=== PATIENT | female | born 1980 | race Caucasian/White ===

== ENCOUNTER 2022-12-04 14:44 | Emergency (ER) | payer SELFPAY | END 2022-12-04 19:44 | disposition left against medical advice (07) | PROVIDERS: Emergency Provider Emergency Medicine | DX: B02.9 Zoster without complications (principal) ==

== ENCOUNTER 2022-12-05 11:07 | Emergency (ER) | payer MEDICAID, OTHER, SELFPAY ==
[2022-12-05 11:38] VITALS: BP 117/73; PULSE 106; RESP 17; TEMP 37.2; O2SAT 100; BMI 23.1
--- NOTE | 2022-12-05 11:39 | ED.SKABFB ---
HPI - Skin/Abscess/Foreign Bdy General Chief complaint: General Medical Stated complaint: Shingles Time Seen by Provider: 12/05/22 11:40 Source: patient Mode of arrival: ambulatory History of Present Illness HPI narrative: 42-year-old female with no significant past medical history presenting to ED complaining of suspected shingles rash to left chest since Sunday. Patient states she came to the ED yesterday however LWT'd due to wait time and being too much pain. Reports subjective fever. Denies CP/SOB, open/draining wounds. Admits had chickenpoxs as a child MD complaint: rash Onset (ago): day(s) Related Data Previous Rx's Medication Instructions Recorded gabapentin 100 mg capsule 100 mg PO TID 7 days #21 caps 12/05/22 valacyclovir 1 gram tablet 1,000 mg PO TID 7 days #21 tabs 12/05/22 (Valtrex) Allergies Allergy/AdvReac Type Severity Reaction Status Date / Time No Known Allergies Allergy Verified 12/05/22 11:41 Review of Systems Review of Systems: Constitutional: No Fever, No Chills ENT/Mouth: No Ear Pain, No Nasal Congestion, No sore throat, No Rhinorrhea, No Swallowing Difficulty Cardiovascular: No Chest Pain, No SOB Respiratory: No Cough, No Sputum, No Wheezing Gastrointestinal: No Nausea, No Vomiting, No Diarrhea, No Constipation, No Abdominal pain Genitourinary: No Dysuria, No Urinary Frequency, No Hematuria, No Flank Pain Musculoskeletal: No joint pain, No Myalgias, No Joint Swelling Skin: + Skin Lesions, No rash Neuro: No Weakness, No Numbness, No Paresthesias Yes all other systems are reviewed and are negative Constitutional: Constitutional: Reports as per [facility] Past Medical History Attestation statement: The following information was validated with the patient. Physical Exam Vital Signs: Vital Signs: Last Vital Signs Temp 98.9 F 12/05/22 11:38 Pulse 106 H 12/05/22 11:38 Resp 17 12/05/22 11:38 BP 117/73 12/05/22 11:38 Pulse Ox 100 12/05/22 11:38 BMI result Body Mass Index 23.1 Const: General: cooperative, healthy appearing and no acute distress Orientation/consciousness: patient oriented x3 Limitations: no limitations HEENT: Head: Yes normal to inspection and Yes atraumatic Ears: hearing grossly normal bilaterally General nose exam: Normal external nose present Face and sinus: Yes normal facial exam Eyes: General: appearance normal, both eyes and all related structures EOM: EOMs intact bilaterally Neck: Neck: Yes normal visual inspection and Yes no meningeal signs Resp: Effort & Inspection: normal respiratory effort and no respiratory distress Cardio: Rate: regular rate Heart sounds: S1 normal heart sound present and S2 normal heart sound present Skin: Other: + vesicular rash in dermatomal fashion noted to left chest crossing lower breast, and back, not crossing midline. No active drainage, no underlying erythema/cellulitis Wounds: no wounds Neuro: General: patient oriented x3, tone normal and no meningeal signs Gait exam (Neuro): Normal gait present Extrem: General: Yes normal to inspection Medical Decision Making Medical Decision Making MDM Narrative: 42-year-old female with no significant past medical history presenting to ED complaining of suspected shingles rash to left chest since Sunday. On exam mildly tachycardic likely from pain, appears uncomfortable, vesicular dermatomal rash noted to left chest, not crossing midline, consistent with shingles. No ocular/ear or palm/sole involvement. No evidence of overlying cellulitis Discussed with patient with customs and border protection officer importance of avoiding children/ women and elders. Plan: P.o. acyclovir/gabapentin Please refer to course for remaining clinical decision making, interpretation of labs/imaging results, and discussions with consultants and/or family members. Differential Diagnosis Differential Diagnoses: The differential diagnosis associated with the presentation includes As above Admission/Observation Consideration of admission/observation: Escalation of care including admission/observation considered Lab Data [facility] Lab Attestation statement: I reviewed the patient's lab results. Radiology Impression Discussion of test interpretation with radiology: I have reviewed the radiologist's reading. External Record Review External record reviewed: Inpatient record, Office record, Outpatient record, Prior outpatient labs, Prior outpatient radiology, Primary care record and Outside ED record Discharge Plan Discharge Clinical Impression: Herpes zoster Patient Disposition: Home, Self-Care Instructions: Shingles (ED) Additional Instructions: You have shingles. Your contagious until your rash crust over Acyclovir is antiviral medication please take as prescribed Gabapentin a with pain In addition take Tylenol and ibuprofen Follow-up with her doctor. If symptoms persist or worsen area begins look infected return to the ED Prescriptions: New valacyclovir [Valtrex] 1 gram tablet 1,000 mg PO TID 7 Days Qty: 21 0RF gabapentin 100 mg capsule 100 mg PO TID 7 Days Qty: 21 0RF Referrals: Physician,None [Primary Care Provider] - 1 week Stand Alone Forms: Work/School Release
== END 2022-12-05 11:50 | disposition home or self-care (01) ==
PROVIDERS: Emergency Provider Student in an Organized Health Care Education/Training Program
DX: B02.9 Zoster without complications (principal)
CPT/HCPCS: 99282; 99283

== ENCOUNTER 2023-05-10 12:03 | Outpatient (REF) | payer MEDICAID, OTHER, SELFPAY ==
--- NOTE | ~2023-05-10 | XR_ITS ---
EXAMINATION: XR CHEST CLINICAL INFORMATION: Patient with dermatomyositis to rule out any lung lesions. COMPARISON: None available. TECHNIQUE: 2 views of the chest were obtained. FINDINGS: No significant abnormality is noted involving the heart, lungs, mediastinum, bony thorax or soft tissues. XR/XR chest 2V IMPRESSION: Unremarkable examination.
[2023-05-10 13:00] LABS: MANUAL DIFF FLAG NO
[2023-05-10 13:28] LABS: Basophils Percent Auto 0.8 % (0-2); Hematocrit 39.9 % (37.0-47.0); Hemoglobin 12.6 g/dl (12.0-16.0); Imm Gran Abs Auto 0.01 X10*3/uL (0.00-0.03); Imm Gran Pct Auto 0.3 % (0.0-0.4); Lymphocytes Absolute Auto 1.2 X10*3/uL (1.2-4.9); Lymphocytes Percent Auto 30.8 % (20-40); Mean Corpuscular HGB Conc 31.6 g/dl (31.0-35.0); Mean Corpuscular Hemoglobin 28.4 pg (27.0-33.0); Mean Corpuscular Volume 90.1 fL (80.0-98.0); Mean Platelet Volume 9.4 fL (9.4-12.3); Monocytes Absolute Auto 0.6 X10*3/uL (0.1-1.2); Monocytes Percent Auto 15.1 % (2-11); Platelet Count 328 X10*3/uL (160-400); Red Blood Count 4.43 X10*6/uL (4.20-5.50); Red Cell Distribution Width 13.2 % (11.0-16.0); White Blood Count 3.9 X10*3/uL (4.8-10.8)
[2023-05-10 13:44] LABS: Appearance Urine Clear; Color Urine Yellow; Glucose Urine UA Negative (Negative); Leukocyte Esterase Urine Negative (Negative); Nitrite Urine Negative (Negative); Specific Gravity - Urine 1.015 (1.005-1.025); Urine Blood Negative (Negative); Urine Ketones Negative (Negative); Urine Protein Negative (Neg-Trace)
[2023-05-10 13:52] LABS: Bacteria Urine Trace (None Seen); Hyaline Casts Urine 0-2 /LPF (0-2); RBC Urine 0-2 /HPF (0-2); WBC Urine 0-5 /HPF (0-5)
[2023-05-10 14:06] LABS: Erythrocyte Sedimentation Rate 7 MM/HR (0-20)
[2023-05-10 14:15] LABS: Alanine Aminotransferase 21 U/L (0-31); Albumin Level 4.3 g/dL (3.5-5.0); Alkaline Phosphatase 69 U/L (39-117); Anion Gap 13 (12-20); Aspartate Amino Transferase 23 U/L (5-31); Bilirubin Total 0.3 mg/dL (0.0-1.0); Blood Urea Nitrogen 9 mg/dL (9-16); C Reactive Protein 0.24 mg/dL (< or = 0.50); Calcium 9.1 mg/dL (8.4-10.2); Carbon Dioxide 24 mmol/L (22-29); Chloride 107 mmol/L (96-108); Cholesterol 177 mg/dL (<200); Estimated Average Glucose 105 mg/dL; Estimated Glomerular Filt Rate > 60; Glucose Random 82 mg/dL (60-115); HDL Cholesterol 38 mg/dL (>40); Hemoglobin A1c % 5.3 % (<6.0); Iron 66 mcg/dL (30-160); LDL Cholesterol Calculated 113 mg/dL (<100); Percent Iron Saturation 21 % (15-50); Sodium 140 mmol/L (135-145); Total Iron Binding Capacity 311 mcg/dL (228-428); Total Protein 8.2 g/dL (6.5-8.0); Triglycerides 134 mg/dL (<150); Unsaturated Iron Binding 245 ug/dL
[2023-05-10 14:32] LABS: Ferritin 57 ng/mL (10-250); TSH reflex Free T4 0.84 uIU/mL (0.32-4.0)
[2023-05-10 16:51] LABS: CT PCR NOT DETECTED (Not Detect.); NG PCR NOT DETECTED (Not Detect.)
[2023-05-11 03:12] LABS: Syphilis Screen Nonreactive (Nonreactive)
[2023-05-11 03:38] LABS: HBS Num1 > 1000.00 mIU/mL (0-7.99); HBc Num1 0.12 S/CO (0.00-0.79); HIV AB/AG Nonreactive (Nonreactive); HIV Num 1 0.05 S/CO (0.00-0.99); Hepatitis B Core Antibody Nonreactive (Nonreactive); ~Hepatitis B Surface Antibody REACTIVE (Nonreactive); ~Hepatitis C Antibody Nonreactive (Nonreactive)
[2023-05-12 05:28] LABS: Follicle Stimulating Hormone 20.7 mIU/mL; Lutenizing Hormone 22.8 mIU/mL
[2023-05-12 08:39] LABS: CA-125 10 U/mL (<35)
[2023-05-12 18:59] LABS: Hepatitis B Viral DNA Qn - cp NOT DETECTED Log IU/mL (NOT DETECTED); Hepatitis B Viral DNA Qn-IU/mL NOT DETECTED (NOT DETECTED)
[2023-05-15 22:24] LABS: Estradiol Ultra Sensitive 91 pg/mL
== END 2023-05-10 12:04 | disposition home or self-care (01) ==
LOC: HO.HHCL 12:03
PROVIDERS: Visit Provider Student in an Organized Health Care Education/Training Program
DX: M33.90 Dermatopolymyositis, unspecified, organ involvement unspecified (principal); Z00.00 Encounter for general adult medical examination without abnormal findings; Z13.89 Encounter for screening for other disorder
CPT/HCPCS: 0353U; 71046; 80053; 80061; 81001; 82670; 82728; 83001; 83002; 83036; 83540; 84443; 85025; 85652; 86140; 86304; 86704; 86706; 86780; 86803; 87389; 87517

== ENCOUNTER 2023-05-14 14:33 | Outpatient (REF) | payer MEDICAID, OTHER, SELFPAY ==
--- NOTE | ~2023-05-14 | MM_ITS ---
EXAMINATION: MM SCREENING DIGITAL BREAST TOMOSYNTHESIS, BILATERAL CLINICAL INFORMATION: Screening. Asymptomatic. COMPARISON: Mammography: There are no prior mammograms available for comparison. TECHNIQUE: Digital breast tomosynthesis is performed in both the craniocaudal and mediolateral oblique views along with computer-aided detection (CAD). Synthesized 2D images are generated from the tomosynthesis. FINDINGS: The breasts are heterogeneously dense, which may obscure small masses (ACR BI-RADS breast composition Category c). There are no significant masses, abnormal calcifications, or other abnormalities. MM/MM tomosynthesis screening BI IMPRESSION: No mammographic evidence of malignancy. ASSESSMENT: BI-RADS BI-RADS 1 - Negative RECOMMENDATION: Routine annual mammography screening. 1 year F/U This examination should not preclude the clinical evaluation of a suspicious palpable abnormality. This patient's information was entered into a reminder system with a target due date for their next mammogram.
== END 2023-05-14 14:34 | disposition home or self-care (01) ==
LOC: HO.MAMMO 14:33
PROVIDERS: Visit Provider Student in an Organized Health Care Education/Training Program
DX: Z12.31 Encounter for screening mammogram for malignant neoplasm of breast (principal)
CPT/HCPCS: 77063; 77067

== ENCOUNTER → 2023-05-14 14:45 | Outpatient (BNV) | payer SELFPAY | PROVIDERS: Visit Provider Radiology Diagnostic Radiology | DX: Z12.31 Encounter for screening mammogram for malignant neoplasm of breast (principal) | CPT/HCPCS: 77063; 77067 ==

== ENCOUNTER 2023-05-30 17:54 | Outpatient (REF) | payer MEDICAID, OTHER, SELFPAY ==
[2023-06-06 09:38] LABS: HPV 16 RNA NOT DETECTED (NOT DETECTED); HPV mRNA E6/E7 rflx Detected (Not Detected)
== END 2023-05-30 17:55 | disposition home or self-care (01) ==
LOC: HO.HHCLNP 17:54
PROVIDERS: Visit Provider Advanced Practice Midwife
DX: Z01.419 Encounter for gynecological examination (general) (routine) without abnormal findings (principal); R39.15 Urgency of urination
CPT/HCPCS: 87086; 87624; 87625; 88142

== ENCOUNTER 2023-06-22 12:14 | Outpatient (REF) | payer MEDICAID, OTHER, SELFPAY ==
[2023-06-25 12:08] LABS: TS Negative Control Passed; TS Panel A 0; TS Panel B 0; TS Positive Control Passed; TSpotTB Negative (Negative)
[2023-06-27 20:33] LABS: Glucose-6-Phosphate Dehydrogen 15.6 U/g Hgb (7.0-20.5)
== END 2023-06-22 12:15 | disposition home or self-care (01) ==
LOC: HO.HHCL 12:14
PROVIDERS: Visit Provider Internal Medicine
DX: M33.90 Dermatopolymyositis, unspecified, organ involvement unspecified (principal); Z11.1 Encounter for screening for respiratory tuberculosis
CPT/HCPCS: 36415; 82955; 86481

== ENCOUNTER → 2023-07-31 10:37 | Outpatient (REF) | payer MEDICAID, OTHER, SELFPAY ==
--- NOTE | 2023-07-31 10:42 | CA_ITS ---
Transthoracic Echocardiogram Patient (Last, First, Middle): Kelsey Avalos, Gender: Female Date of : 1980 Age: 42 Procedure Date: 07/31/2023 Procedure Type: Transthoracic Echocardiogram Location: OP Height: 170.18 cm Weight: 64.86 kg BSA: 1.75 m2 Heart Rate: bpm BP: 130 / 76 mmHg Application Developer Manager: MARTÍN Referring MD: Angeles Rea MD Foundry Metallurgist: Myles Li MD Symptoms: NON RHEU AV INSUFF I35.1 Study Quality: Adequate ECG Rhythm: Sinus Conclusions: - 1. Normal LV systolic and diastolic function 2. Mild aortic regurgitation 3. No gross pericardial effusion Findings Left Ventricle Normal left ventricular size, thickness, and systolic function. The visually estimated ejection fraction is between 60-65%. Diastolic function is normal for age. Peak GLS is -19.5%, within normal limits. Right Ventricle Normal right ventricular cavity size and systolic function. Atria Both atria are normal in size. There is no evidence of interatrial shunt. Aortic Valve Normal aortic valve structure and function. There is no aortic valve stenosis. There is mild aortic valve regurgitation. Mitral Valve Normal mitral valve structure and function. There is trace mitral valve regurgitation. There is no mitral valve stenosis. Pulmonic Valve The pulmonic valve is likely normal. Tricuspid Valve Normal tricuspid valve structure. Tricuspid regurgitation envelope is inadequate for calculation of right ventricular systolic pressure. Normal right atrial pressure. Great Vessels All visible segments of the aorta are normal in size. The pulmonary artery was not well visualized. Venous The inferior vena cava is normal in size and collapses greater than 50% with inspiration. Pericardium/Pleural There is no evidence of pericardial effusion. Prior Study Comparison No prior study available for comparison. Measurements 2D Linear Measurements IVSd: 0.75 0.6-0.9/0.6-1.0 cm LVIDd: 4.55 3.9-5.3/4.2-5.9 cm LVIDd Index: 2.60 2.4-3.2/2.2-3.1 cm/m2 LVIDs: 2.97 2.0-3.6 cm LVPWd: 0.83 0.7-1.1 cm LA Diam: 3.30 2.7-3.8/3.0-4.0 cm LAIDs Index: 1.89 1.5-2.3 cm/m2 LV Mass: 141.13 67-162/88-224 g LV Mass Index: 80.64 43-95/49-115 g/m2 LVOT Diam: 2.00 3.0+(-)1.3 cm 2D Systolic Function EF 4C: 69.10 >55% EF 2C: 53.50 >55% EF BiP: 61.40 >55% Mitral Valve MV Pk E: 0.99 MV PK A: 0.47 MV Decel Time: 192.00 E/A: 2.10 E'Lateral: 14.30 E'Medial: 8.59 E/E' Med: 11.50 E/E' Lat: 6.90 PHT: 56.00 MVA PHT: 3.93 Decel Bailey: 5.13 Aortic Valve AoV Pk Alexander: 1.77 AoV Mn Alexander: 1.11 AoV VTI: 0.36 AoV Pk Grad: 13.00 Aov Mn Grad: 6.00 TIM Cont.VTI: 2.21 AI Pk Alexander: 4.69 AI VTI: 3.04 AI Bailey: 2.53 AI Alias Alexander: 0.39 AI RV - PISA: 24.00 ERO - PISA: 8.00 LVOT LVOT Pk Alexander: 1.19 LVOT Mn Alexander: 0.73 LVOT VTI: 0.25 LVOT Pk Grad: 6.00 LVOT Mn Grad: 3.00 LVOT Diam: 2.00 LVOT Area: 3.14 Diastolic Function MV Pk E: 0.99 MV Pk A: 0.47 E/A: 2.10 E'Medial: 8.59 E/E' Med: 11.50 E' Laterial: 14.30 E/E' Lat: 6.90 Right Ventricle TAPSE (mm): 22.00 TVS' Alexander: 10.70 Tricuspid Valve RA Press: 3.00 Great Vessels Aorta Sinus of Valsalva: 2.56 2.0-3.[address] Ridge: 1.92 1.7-3.4 cm Ao Asc: 2.60 2.1-3.4 cm Ao Arch: 2.50 Updated in Other Vendor System with Status of Final Myles Li MD electronically signed on 08/01/2023 6:00:51 PM with status of Final
== END ==
LOC: HO.CARD 10:37
PROVIDERS: Visit Provider Student in an Organized Health Care Education/Training Program
DX: I35.1 Nonrheumatic aortic (valve) insufficiency (principal)
CPT/HCPCS: 93306; 93356

== ENCOUNTER → 2023-07-31 10:42 | Outpatient (BNV) | payer SELFPAY | PROVIDERS: Visit Provider Internal Medicine Cardiovascular Disease | DX: I35.1 Nonrheumatic aortic (valve) insufficiency (principal) | CPT/HCPCS: 93306 ==

== ENCOUNTER 2024-05-19 14:13 | Outpatient (REF) | payer MEDICAID, OTHER, SELFPAY ==
--- NOTE | ~2024-05-19 | MM_ITS ---
EXAMINATION: MM SCREENING DIGITAL BREAST TOMOSYNTHESIS, BILATERAL CLINICAL INFORMATION: Screening. Asymptomatic. COMPARISON: Mammography: Comparison is made with available priors TECHNIQUE: Digital breast mammography with tomosynthesis is performed in both the craniocaudal and mediolateral oblique views along with computer-aided detection (CAD). FINDINGS: The breasts are heterogeneously dense, which may obscure small masses (ACR BI-RADS breast composition Category c). There are no significant masses, abnormal calcifications, or other abnormalities. MM/MM tomosynthesis screening BI IMPRESSION: No mammographic evidence of malignancy. ASSESSMENT: BI-RADS BI-RADS 1 - Negative RECOMMENDATION: Routine annual mammography screening. 1 year F/U This examination should not preclude the clinical evaluation of a suspicious palpable abnormality. This patient's information was entered into a reminder system with a target due date for their next mammogram. Electronically signed by: Michelle Dinero DO 05/30/2024 04:45 PM EDT
== END 2024-05-19 14:14 | disposition home or self-care (01) ==
LOC: HO.MAMMO 14:13
PROVIDERS: PCP Student in an Organized Health Care Education/Training Program; Visit Provider Student in an Organized Health Care Education/Training Program
DX: Z12.31 Encounter for screening mammogram for malignant neoplasm of breast (principal)
CPT/HCPCS: 77063; 77067

== ENCOUNTER → 2024-05-19 14:30 | Outpatient (BNV) | payer SELFPAY | PROVIDERS: PCP Student in an Organized Health Care Education/Training Program; Visit Provider Internal Medicine | DX: Z12.31 Encounter for screening mammogram for malignant neoplasm of breast (principal) | CPT/HCPCS: 77063; 77067 ==

== ENCOUNTER 2025-05-21 10:37 | Outpatient (REF) | payer OTHER, SELFPAY ==
[2025-05-21 14:07] LABS: Alanine Aminotransferase 175 U/L (0-31); Albumin Level 4.4 g/dL (3.5-5.0); Alkaline Phosphatase 81 U/L (39-117); Anion Gap 11 (12-20); Aspartate Amino Transferase 118 U/L (5-31); Blood Urea Nitrogen 9 mg/dL (9-16); Calcium 9.0 mg/dL (8.4-10.2); Carbon Dioxide 25 mmol/L (22-29); Chloride 109 mmol/L (96-108); Cholesterol 189 mg/dL (<200); Estimated Glomerular Filt Rate > 60; HDL Cholesterol 34 mg/dL (>40); Potassium 4.2 mmol/L (3.3-5.1); Sodium 141 mmol/L (135-145); Total Protein 7.8 g/dL (6.5-8.0); Triglycerides 144 mg/dL (<150)
[2025-05-21 14:15] LABS: Hematocrit 40.0 % (37.0-47.0); Hemoglobin 12.5 g/dl (12.0-16.0); Mean Corpuscular HGB Conc 31.3 g/dl (31.0-35.0); Mean Corpuscular Hemoglobin 27.1 pg (27.0-33.0); Mean Corpuscular Volume 86.8 fL (80.0-98.0); NRBC Abs Auto 0.000 X10*3/uL (0.0-0.012); NRBC Pct Auto 0.0 /100WBC (0.0-0.2); Platelet Count 339 X10*3/uL (160-400); Red Blood Count 4.61 X10*6/uL (4.20-5.50); White Blood Count 5.5 X10*3/uL (4.8-10.8)
[2025-05-21 14:35] LABS: HBS Num1 > 1000.00 mIU/mL (0-7.99); HBc Num1 0.24 S/CO (0.00-0.79); HIV Num 1 0.06 S/CO (0.00-0.99); ~HepC Num1 0.10 S/CO (0.00-0.79); ~Hepatitis B Surface Antibody REACTIVE (Nonreactive); ~Hepatitis C Antibody Nonreactive (Nonreactive)
[2025-05-21 14:36] LABS: HBsAGNum1 0.41 S/CO (0.00-0.99); Hepatitis B Surface Antigen Negative (Negative); Syphilis Screen Nonreactive (Nonreactive)
[2025-05-21 15:46] LABS: CT PCR Urine NOT DETECTED (Not Detect.); NG PCR Urine NOT DETECTED (Not Detect.)
[2025-05-22 09:04] LABS: CA-125 9 U/mL (<35)
== END 2025-05-21 10:38 | disposition home or self-care (01) ==
LOC: HO.HHCL 10:37
PROVIDERS: PCP Student in an Organized Health Care Education/Training Program; Visit Provider Student in an Organized Health Care Education/Training Program
DX: Z00.00 Encounter for general adult medical examination without abnormal findings (principal); Z11.4 Encounter for screening for human immunodeficiency virus [HIV]; Z11.59 Encounter for screening for other viral diseases; Z20.2 Contact with and (suspected) exposure to infections with a predominantly sexual mode of transmission; Z01.84 Encounter for antibody response examination
CPT/HCPCS: 80053; 80061; 83036; 84443; 85027; 86304; 86704; 86706; 86780; 86803; 87340; 87389; 87491; 87591

== ENCOUNTER 2025-05-26 11:26 | Outpatient (REF) | payer OTHER, SELFPAY ==
--- NOTE | ~2025-05-26 | XR_ITS ---
EXAMINATION: XR CHEST CLINICAL INFORMATION: Patient with dermatomyositis to rule out any lung lesions. COMPARISON: 05/02/2023 TECHNIQUE: 2 views of the chest were obtained. FINDINGS: No significant abnormality is noted involving the heart, lungs, mediastinum, bony thorax or soft tissues. XR/XR chest 2V IMPRESSION: No acute disease, stable x-ray Electronically signed by: Jim Thorne MD 05/26/2025 12:16 PM EDT
--- OUTSIDE RECORDS SUMMARY | 2025-05-26 10:00 | XMS_ITS | Encounter Summary ---
Author Organization [employer] Address [address] [place] [address] [address] [place] [address] Care Team Providers Care Section Leader Name Role Phone Angeles Daugherty MD Primary Care Pro vider Reason for Referral * Consultation (Routine) - Authorized Specialty Diagnoses / Procedures Referred By Contac t Referred To Contact Nutrition Diagnoses History of prediabetes Hyperlipidemia, unspecified hyperlipidemia type Overweight Angeles Daugherty MD [address] [place] [id number] Phone: tel: fax: Referral ID Status Reason Start Date Expiration Date Visits Requested Visits Authorized [id number] Authorized Specialty Services Required 05/26/2026 1 1 Encounter Details Date Type Department Care Team (Latest Contact Info) Description 05/26/2025 10:00 AM EDT Office Visit [facility] [address] [place] [address] [phone] Angeles Daugherty MD [address] [place] [address] [phone] Transaminitis (Primary Dx); Hot flashes; History of prediabetes; Hyperlipidemia, unspecified hyperlipidemia type; Overweight; Encounter for immunization; Amenorrhea Social History Tobacco Use Types Packs/Day Years Used Date Smoking Tobacco: Never Passive Smoke Exposure: Never Smokeless Tobacco: Never Tobacco Cessation:Counseling Given: Not Answered Alcohol Use Standard Drinks/Week Comments Yes 0 (1 standard drink = 0.6 oz pur e alcohol) social Depression Answer Date Recorded Patient Health Questionnaire-9 Score 0 03/24/2025 Patient Health Questionnaire-9 Score 0 03/24/2025 Last PHQ-9: Questionnaire Data Not on file 0 03/24/2025 Housing Stability Answer Date Recorded What is your housing situation today? I have jan sy 03/24/[address] you li ve. Do you have problems with any of the following? None of the above 03/24/2025 Food Insecurity Answer Date Recorded Within the past 12 months, y ou worried that your food would run out before you got money to buy more: Never True 03/24/2025 Within the past 12 months,th e food you bought just didn't last and you didn't have enough money to get more: Never True 07/2025 Transportation Answer Date Recorded In the past 12 months, has l ack of transportation kept you from medical appts, meetings, work or from getting things needed for daily living? No 03/24/2025 Utilities Answer Date Recorded In the past 12 months, has t he electric, gas, oil or water company threatened to shut off services in your home? No 03/24/2025 Depression Answer Date Recorded Patient Health Questionnaire-2 Score 0 03/24/2025 Internet Access Answer Date Recorded Internet Access Q1 No 03/24/2025 Internet Access Q2 I do not want or need it 03/13 Comments No Sex and Gender Information Value Date Recorded Sex Assigned at Female 01/19/2023 10:16 AM EDT Legal Sex Female 3:46 PM EDT Gender Identity Female 01/19/2023 10:16 AM EDT Sexual Orientation Straight 05/10/2023 10 :50 AM EDT documented as of this encounter Last Filed Vital Signs Vital Sign Reading Time Taken Comments Blood Pressure 138/72 05/26/2025 10:18 AM EDT Pulse 70 05/26/2025 10:18 AM EDT Temperature 36.2 C (97.1 F) 05/26/2025 10:18 AM EDT Respiratory Rate 20 05/26/2025 10:1 8 AM EDT Oxygen Saturation 98% 05/26/2025 10: 18 AM EDT Inhaled Oxygen Concentration - - Weight 75.7 kg (166 lb 12.8 oz) 025 10:18 AM EDT Height 170.2 cm (5' 7 ) 05/26/2025 10:1 8 AM EDT Body Mass Index 26.12 05/26/2025 10:18 AM EDT documented in this encounter Plan of Treatment Scheduled Orders Name Type Priority Associated Diagnoses Orde r Schedule LH Lab Routine Hot flashes Expected: 05/26/2025 (Approximate), Expires: 05/26/2026 FSH Lab Routine Hot flashes Expected: 05/26/2025, Expires: 05/26/2026 Estradiol Lab Routine Hot flashes Expected: 05/26/2025, Expires: 05/26/2026 Comprehensive Metabolic Panel Lab Routine Transaminitis Expected: 05/26/2025 (Approximate), Expires: 05/26/2026 Scheduled Referrals Name Type Priority Associated Diagnoses Orde r Schedule Referral to Nutrition Services, Internal Outpatient Referral Routine History of prediabetes Hyperlipidemia, unspecified hyperlipidemia type Overweight Expected: 05/26/2025 (Approximate), Expires: 05/26/2026 documented as of this encounter Procedures Procedure Name Priority Date/Time Associated Diagnosis Comments POCT , URINE Routine 05/26/2025 11:28 AM EDT Amenorrhea documented in this encounter Results * POCT Urine (05/26/2025 11:28 AM EDT) Preg Test, Ur Negative Negative, Indeterminate, None Detected, Invalid, Specimen unsatisfactory for evaluation, Weakly Positive, 2+ QC Media Lot # [id number] Lot# Expiration Date [id number] Urine 05/26/2025 11:2 8 AM EDT us Angeles Rea MD POINT OF CARE [place] T ENTER/EDIT ORDERABLES Final Result documented in this encounter Visit Diagnoses Diagnosis Transaminitis- Primary Nonspecific elevation of levels of transaminase or lactic acid dehydrogenase (LDH) Hot flashes History of prediabetes Hyperlipidemia, unspecified hyperlipidemia type Overweight Encounter for immunization Amenorrhea Absence of menstruation documented in this encounter Additional Health Concerns Assessment Noted Time PHQ-9 Depression Total Score: 0 03/24/20 25 11:50 AM EDT documented as of this encounter Care Teams Section Leader Relationship Specialty Start Date End Date Angeles Daugherty MD [address] [place] [phone] PCP - General Internal Medicine 05/10/23 documented as of this encounter
--- OUTSIDE RECORDS SUMMARY | 2025-05-26 13:57 | XMS_ITS | Encounter Summary ---
Author Organization [facility] Address [address] [place] [address] Care Team Providers Care Auto Tester Name Role Phone Angeles Daugherty Primary Care Provider [phone] Reason for Visit * Reason Onset Date Comments PAC Appt Request - New 08/21/2023 Encounter Details Date Type Department Care Team (Late st Contact Info) Description 08/21/2023 Telephone [facility] [address] [place] [phone] Telephone Intake, Staff PAC Appt Request - New Social History Tobacco Use Types Packs/Day Years Used Date Smoking Tobacco: Never Passive Smoke Exposure: Never Smokeless Tobacco: Never Alcohol Use Standard Drinks/Week Comments Yes 0 (1 standard drink = 0.6 oz pur e alcohol) social Comments No Sex and Gender Information Value Date Recorded Sex Assigned at Female 06/25/2023 11:09 AM EST Legal Sex Female 3:29 PM EDT Gender Identity Female 06/25/2023 11:09 AM EST Sexual Orientation Straight 06/25/2023 11 :09 AM EST documented as of this encounter Miscellaneous Notes * Telephone Encounter - Aminta Donahue - 08/21/2023 1:29 PM EST Patient has a referral for Dermatophytosis which is not in the PACs Dt. Please call the patient to reschedule no showed appt. -PAC documented in this encounter Plan of Treatment Upcoming Encounters Date Type Department Care Team (Late Contact Info) Description 06/29/2025 10:40 AM EST Follow-Up [facility] [address] [place] [address] Asbestos Remover: Audrey Lizama MD [address] [place] [address] 10/28/2025 11:30 AM EDT Office Visit [facility] [address] [place] [address] Asbestos Remover: Lakshmi Corona PA [address] [facility] [place] [address] documented as of this encounter Visit Diagnoses Not on filedocumented in this encounter Care Teams Auto Tester Relationship Specialty Start Date End Date Angeles Daugherty PCP - General 06/13/23 documented as of this encounter
--- OUTSIDE RECORDS SUMMARY | 2025-05-26 13:58 | XMS_ITS | Encounter Summary ---
Author Organization [employer] Address [address] [place] [address] [address] [place] [address] Care Team Providers Care Social Worker Assistant Name Role Phone Angeles Daugherty MD Primary Care Pro vider Reason for Visit * Reason Onset Date Comments chart prep 05/25/2025 Encounter Details Date Type Department Care Team ([facility] st Contact Info) Description 05/25/2025 Telephone [facility] [address] [place] [address] Angeles Daugherty MD [address] [place] [phone] chart prep Social History Tobacco Use Types Packs/Day Years [...] your housing situation today? I have jan sing 03/24/[address] you li [...] AM EDT documented as of this encounter Miscellaneous Notes * Telephone Encounter - Hamilton Rojas MA - 05/25/2025 10:05 AM EDT Chart Prep Labs: done Images: not done Referrals: complete Vaccines due: Covid, Hep B, and HPV Screenings: pap smear Overdue care gaps: Oral health screening documented in this encounter Plan of Treatment Not on file documented as of this encounter Visit Diagnoses Not on filedocumented in this encounter Additional Health Concerns Assessment Noted Time PHQ-9 Depression Total Score: 0 03/24/20 25 11:50 AM EDT documented as of this encounter Care Teams Social Worker Assistant Relationship Specialty Start Date End Date Angeles Daugherty MD [address] [place] [phone] PCP - General Internal Medicine 05/10/23 documented as of this encounter
--- OUTSIDE RECORDS SUMMARY | 2025-05-26 13:58 | XMS_ITS | Clinical Summary ---
Author Organization [facility] Address [address] [place] [address] Care Team Providers Care Natural Gas Plant Technician Name Role Phone Angeles Daugherty Primary Care Provider Allergies Active Allergy Reactions Criticality Noted Date Comments Hydroxychloroquine Rash High 07/13/2023 Medications folic acid (FOLVITE) 1 mg tablet Take 1 tablet (1 mg total) by mouth once a day. 90 tablet 3 4 Active vitamin D3 25 mcg (1,000 unit) capsule Take 1 capsule by mouth once a day. Active betamethasone dipropionate 0.05 % ointment Apply topically to the affected areas twice a day for 2 weeks, then once a day for 1 week, then as needed for itch and rash. 180 g 5 4 Active norethindrone ac-eth estradioL (,) 1-20 mg-mcg per tablet Take 1 tablet by mouth once a day. 90 tablet 3 4 Active clobetasoL (TEMOVATE) 0.05 % external solutionIndicatio ns:Dermatomyositi s Apply to entire scalp every third night. 100 mL 5 5 Active aspirin 81 mg EC tablet Take 81 mg by mouth once a day. Active Active Problems Problem Noted Date Diagnosed Date Prediabetes 12/09/2024 Adult onset amyopathic dermatomyositis 4 Anxiety 05/10/2023 Aortic regurgitation 05/10/2023 Dermatomyositis 05/10/2023 Immunizations Immunization Administration Dates Next Due Influenza, Injectable, Quadrivalent, Preservativ e Free 05/10/2023 Pneumococcal conjugate PCV20 ,polysaccharide [id number] conjugate, adjuvant, PF (Prevnar 20) 06/13/2023 Family History Medical History Relation Name Comments Colon cancer Father Relation Name Status Comments Brother Alive Father Alive Mother Alive Social History Tobacco Use Types Packs/Day Years [...] Orientation Straight 06/25/2023 11 :09 AM EST Last Filed Vital Signs Vital Sign Reading Time Taken Comments Blood Pressure 146/82 01/30/2025 2:26 PM EDT Pulse 68 01/30/2025 2:26 PM EDT Temperature 36.8 C (98.2 F) 01/30/2025 2:26 PM EDT Respiratory Rate 16 01/30/2025 8:53 AM EDT Oxygen Saturation 98% 01/30/2025 2:26 PM EDT Inhaled Oxygen Concentration - - Weight 75 kg (165 lb 7.3 oz) 01/29/2025 9:31 AM EDT Height 169.6 cm (5' 6.77 ) 05/22/2024 2:39 PM ED T Body Mass Index 26.09 05/22/2024 2:39 PM EDT Plan of Treatment Upcoming Encounters Date Type Department Care Team (Late st Contact Info) Description 06/29/2025 10:40 AM EST Follow-Up [facility] [address] [place] [phone] Pearler: Audrey Lizama MD [address] [place] [phone] 10/28/2025 11:30 AM EDT Office Visit [facility] [address] [place] [phone] Pearler: Lakshmi Corona PA [address] [place] [address] [place] [address] Health Maintenance Due Date Last Done Comments HIV Screening 1982 HPV and Pap Smear 1982 Varicella Vaccines (1 of 2 - 13+ 2-dose series) 1995 Hepatitis B Vaccines (1 of 3 - 19+ 3-dose series) 2001 Alcohol/Substance Use Screening 08/13/2024 Depression Screening and Follow-Up 08/13/2024 Social Drivers of Health Annual Screening 08/13/2024 COVID-19 Vaccine ( - season) 2025 Influenza Vaccine (#1) 2025 05/10/2023 Mammogram 05/14/2025 05/14/2023 Cervical Cancer Screening 07/18/2027 Pap Smear 07/18/2027 07/18/2024, 05/30/2023 DTaP,Tdap,and Td Vaccines (2 - Td or Tdap) 12/18/2032 12/18/2022 RSV Vaccine (60+ years old and patients) (1 - 1-dose 75+ series) 2057 Hepatitis C Screening Completed 05/10/2023 Pneumococcal Vaccine: Pediatric (0-5 Years) and At-Risk Patients (6-50 Years) Aged Out 06/13/2023 No longer eligible based on patient's age to complete this topic Diabetes Screening Discontinued 12/08/2024, 0 12/08/2024, 12/08/2024, Additional history exists Procedures * Due to [place] [employer] law, this organization might not be sharing negative HIV tests. Procedure Name Priority Date/Time Associated Diagnosis Comments HEMOGLOBIN A1C Routine 12/08/2024 11:23 AM EDT Hx of abnormal cervical Pap smear PAP Routine 07/18/2024 5:03 PM EST Hx of abnormal cervical Pap smear from Last 3 Months or Most Recently Relevant to Health Maintenance Results * Due to [place] [employer] law, this organization might not be sharing negative HIV tests. * (ABNORMAL) Hemoglobin A1c (12/08/2024 11:23 AM EDT) Hemoglobin A1C 6.1(H) <5.7 % 12/08/2024 7:53 PM EDT [employer] Comment: For someone without known diabetes, a hemoglobin A1c value between 5.7% and 6.4% is consistent with prediabetes and should be confirmed with a follow-up test. For someone with known diabetes, a value <7% indicates that their diabetes is well controlled. A1c targets should be individualized based on duration of diabetes, age, comorbid conditions, and other considerations. This assay result is consistent with an increased risk of diabetes. Currently, no consensus exists regarding use of hemoglobin A1c for diagnosis of diabetes for children. eAG (MG/DL) 128 mg/dL 12/08/2024 7:53 PM EDT [employer] eAG (MMOL/L) 7.1 mmol/L 12/08/2024 7:53 PM EDT [employer] Blood Structure of peripheral vein / Unknown Venipuncture / Unknown 12/08/2024 11:23 AM EDT 12/08/2024 11:52 AM EDT Narrative [facility] - 12/08/2024 7:53 PM EDT [facility] Received Date: Malini Alicia MD LAB BLOOD ORDERABLES Final R esult [facility] [address], [place] [address], [facility] [address], [place] [address], [place] [phone] * Pap (07/18/2024 5:03 PM EST) Specimen Adequacy Satisfactory for evaluation [facility] 4 12:55 PM EST [facility] Pathologist Cytology Interpretation Low grade squamous intraepithelial lesion. [facility] 4 12:55 PM EST [facility] at 1255 EST College Sports [employer] Statement This Pap test was examined by the [facility], [employer], [place], [place]. This Pap test was examined in accordance with the [facility] Cytopathology Laboratory written policy, which incorporates all CLIA mandates. Current screening guidelines can be found in [place]: A Cancer Journal for Clinicians 2020;70:321-346. Current ASCCP management guidelines for abnormal Pap tests are published in the Journal Lower Genital Tract Disease Volume 2020;24:102-131. [facility] 4 12:55 PM EST [facility] Clinical History hx LSIL HPV+, [facility] 4 12:55 PM EST [facility] Resulting Agency Case was signed out at [facility], Department of Pathology, [facility] CLIA [id number] [facility] 4 12:55 PM EST [facility] Report Header Gynecologic Cytology Report Case: [id number] Authorizing Provider: Malini Alicia MD Collected: 07/18/2024 1703 Ordering Location: [facility] Received: 07/18/2024 [address] [facility] First Screen: Angeles Dean Pathologist: Dimas Cast MD Specimen: Screening ThinPrep Pap, Cervix/Endocervix 4 12:55 PM EST [email or web address] Brushing Cervix uteri structure / Unknown Non-Blood Collection / Unknown 07/18/2024 5:03 PM EST 07/18/2024 7:21 PM EST us Malini Alicia MD LAB PATHOLOGY/CYTOLOGY ORDER VIDAL Final Result [facility] [address] [place] [address], from Last 3 Months or Most Recently Relevant to Health Maintenance Insurance HSNO/FREE CARE Advance Directives Documents on File Type Date Recorded Patient Systems Coordinator Expl anation Health Care Proxy 12/08/2024 7:45 AM 12-04 Health Care Proxy 12/05/2024 10:03 AM Care Teams Natural Gas Plant Technician Relationship Specialty Start Date End Date Angeles Daugherty PCP - General 06/13/23
--- OUTSIDE RECORDS SUMMARY | 2025-05-26 13:58 | XMS_ITS | Encounter Summary ---
Author Organization [employer] Address [address] [place] [address] [address] [place] [address] Care Team Providers Care Water Resource Agent Name Role Phone Angeles Daugherty MD Primary Care Pro vider Reason for Visit * Reason Onset Date Comments Results 05/21/2025 Encounter Details Date Type Department Care Team ([facility] st Contact Info) Description 05/21/2025 Results Follow-Up [facility] [address] [place] [address] Angeles Daugherty MD [address] [place] [address] Hepatitis B Core Antibody, Total, Hepatitis B Surface Antibody, Qualitative, Hepatitis B surface antigen, EIA, Additional followed-up results: 10 Social History Tobacco Use Types Packs/Day Years [...] encounter Miscellaneous Notes * Telephone Encounter - Lucina Escalante RN - 05/22/2025 9:09 AM EDT TC placed to the pt with [email or web address] historic interpreter #[id number] to inform of recent labs drawn. The pt was remindedof upcoming appointment on 05/26 and that PCP will review results but wanted to inquire about a fewthings prior. The pt was asked about any excessive alcohol, NSAID use or taking oral contraceptives. The pt only endorsed recently starting on multivitamins and omega 3 fatty acids. The pt confirmed that she will be attending the appointment next week and was appreciative of the call. ----- Message from Angeles Rea MD sent at 05/21/2025 3:33 PM EDT ----- Please advise pt to come to already schedule apt to go over lab results done at annual exam but please inform pt her LFTs are very elevated > 100s which is new Can you check if pt is taking excessive ETOH, tylenol or NSAID use. If taking oral contraceptives? If she is please advise to hold for now on tylenol and NSAIDs and avoid ETOH Will plan to further evaluation at her upcoming apt w me next week Thanks ----- Message ----- From: Interface, Lab Results In Sent: 05/21/2025 2:08 PM EDT To: Angeles Rea MD * Result Encounter Note - Angeles Rea MD - 05/21/2025 3:33 PM EDT Please advise pt to come to already schedule apt to go over lab results done at annual exam but please inform pt her LFTs are very elevated > 100s which is new Can you check if pt is taking excessive ETOH, tylenol or NSAID use. If taking oral contraceptives? If she is please advise to hold for now on tylenol and NSAIDs and avoid ETOH Will plan to further evaluation at her upcoming apt w me next week Thanks documented in this encounter Plan of Treatment Not on file documented as of this encounter Visit Diagnoses Diagnosis Encounter for immunization documented in this encounter Additional Health Concerns Assessment Noted Time PHQ-9 Depression Total Score: 0 03/24/20 25 11:50 AM EDT documented as of this encounter Care Teams Water Resource Agent Relationship Specialty Start Date End Date Angeles Daugherty MD [address] [place] [phone] PCP - General Internal Medicine 05/10/23 documented as of this encounter
--- OUTSIDE RECORDS SUMMARY | 2025-05-26 13:58 | XMS_ITS | Encounter Summary ---
Author Organization [employer] Address [address] [facility] [address] [place] [address] Care Team Providers Care Rn Or Lvn Name Role Phone Angeles Daugherty MD Primary Care Pro vider Encounter Details Date Type Department Care Team (Latest Contact Info) Description 05/26/2025 Travel Social History Tobacco Use Types Packs/Day Years [...] your housing situation today? I have jan kerrie 03/24/[address] you li [...] AM EDT documented as of this encounter Plan of Treatment Not on file documented as of this encounter Visit Diagnoses Not on filedocumented in this encounter Additional Health Concerns Assessment Noted Time PHQ-9 Depression Total Score: 0 03/24/20 25 11:50 AM EDT documented as of this encounter Care Teams Rn Or Lvn Relationship Specialty Start Date End Date Angeles Daugherty MD [address] [place] [phone] PCP - General Internal Medicine 05/10/23 documented as of this encounter
--- OUTSIDE RECORDS SUMMARY | 2025-05-26 13:58 | XMS_ITS | Encounter Summary ---
Author Organization [employer] Address [address] [place] [address] Care Team Providers Care Flexo Folder Gluer Operator Name Role Phone Angeles Daugherty MD Primary Care Pro vider Encounter Details Date Type Department Care Team (Late st Contact Info) Description 06/07/2023 Abstract [facility] [address] [place] [address] Irene Kim Social History Tobacco Use Types Packs/Day Years Used Date Smoking Tobacco: Never Passive Smoke Exposure: Never Smokeless Tobacco: Never Alcohol Use Standard Drinks/Week Comments Yes 0 (1 standard drink = 0.6 oz pur e alcohol) social Housing Stability Answer Date Recorded What is your housing situation today? I have jan sy 05/29/[address] you li ve. Do you have problems with any of the following? None of the above 05/29/2023 Food Insecurity Answer Date Recorded Within the past 12 months, y ou worried that your food would run out before you got money to buy more: Never True 05/29/2023 Within the past 12 months,th e food you bought just didn't last and you didn't have enough money to get more: Never True Transportation Answer Date Recorded In the past 12 months, has l ack of transportation kept you from medical appts, meetings, work or from getting things needed for daily living? No 05/29/2023 Utilities Answer Date Recorded In the past 12 months, has t he electric, gas, oil or water company threatened to shut off services in your home? No 05/29/2023 Comments No Sex and Gender Information Value [...] on filedocumented in this encounter Care Teams Flexo Folder Gluer Operator Relationship Specialty Start Date End Date Angeles Daugherty MD [address] [place] [id number] PCP - General Internal Medicine 05/10/23 documented as of this encounter
--- OUTSIDE RECORDS SUMMARY | 2025-05-26 13:58 | XMS_ITS | Clinical Summary ---
Author Organization [employer] Address [address] [facility] [address] [place] [address] Care Team Providers Care Claims Administrator Name Role Phone Angeles Daugherty MD Primary Care Pro vider Allergies Active Allergy Reactions Criticality Noted Date Comments Hydroxychloroquine Rash High 07/13/2023 Medications Multiple Vitamin (multivitamin) tablet Take 1 tablet by mouth in the morning. Active aspirin 81 MG EC tablet Take 81 mg by mouth Once per day. Active betamethasone dipropionate (Diprosone) 0.05 % ointment APPLY TOPICALLY TO THE AFFECTED AREA(S) TWICE DAILY FOR 2 WEEKS, THEN ONCE DAILY FOR 7 DAYS THEN NEEDED FOR ITCHING Active cholecalciferol (Vitamin D-3) 25 MCG (1000 UT) capsule Take 1 capsule by mouth Once per day. Active clobetasol (Temovate) 0.05 % external solution APPLY TO SCALP EVERY 3rd NIGHT Active Active Problems Problem Noted Date Diagnosed Date Overweight (BMI 25.0-29.9) 03/24/2025 Abnormal cervical Papanicolaou smear 03/24/2025 Dermatomyositis (CMS/HCC) 05/10/2023 Health care maintenance 05/10/2023 History of shingles 05/10/2023 Aortic regurgitation 05/10/2023 Tympanic membrane rupture, left 05/10/2023 Resolved Problems Problem Noted Date Diagnosed Date Resolved Date Anxiety 05/10/2023 03/24/2025 Encounters Date Type Department Care Team Description 05/26/2025 10:00 AM EDT Office Visit [facility] [address] [place], [place] [phone] Angeles Daugherty MD Transaminitis (Primary Dx); Hot flashes; History of prediabetes; Hyperlipidemia, unspecified hyperlipidemia type; Overweight; Encounter for immunization; Amenorrhea 05/26/2025 Travel 05/25/[address] [address] Angeles Daugherty MD chart prep 05/21/2025 Results Follow-Up [address] [address] Angeles Daugherty MD Hepatitis B Core Antibody, Total, Hepatitis B Surface Antibody, Qualitative, Hepatitis B surface antigen, EIA, Additional followed-up results: 03/24/2025 11:30 AM EDT Office Visit [address] [address] Angeles Daugherty MD Dermatomyositis ([facility]) (Primary Dx); Dietary counseling; Exercise counseling; Annual physical exam; Tympanic membrane rupture, left; Health care maintenance; Overweight (BMI 25.0-29.9); Abnormal cervical Papanicolaou smear, unspecified abnormal pap finding 03/24/2025 Travel 03/23/[address] [address] Angeles Daugherty MD chartprep 03/17/2025 Orders Only [address] [address] Angeles Daugherty MD Dermatomyositis ([facility]) (Primary Dx) 03/17/2025 Patient Outreach [facility] [address] [place], [place] [phone] Angeles Daugherty MD Pre-visit Planning ([facility] unable to reach, Disconnected) 03/17/[address] [phone] Angeles Daugherty MD Patient Question from Last 3 Months Immunizations Immunization Administration Dates Next Due HepB-CpG 12/18/2022 Influenza injectable quadrivalent preservative f ree 05/10/2023 Influenza, seasonal, injectable, preservative fr ee 05/26/2025 Pfizer Covid-19 Vaccine + 05/26/2025 Pneumococcal Conjugate PCV 20 06/13/2023 Tdap 12/18/2022 Family History Medical History Relation Name Comments HTN,DM2,colon ca-75 y of age Father Lung cancer Father's Sister HTN Mother throat cancer-smoker Mother's Brother Relation Name Status Comments Father Father's Sister Mother Mother's Brother Social History Tobacco Use Types Packs/Day Years [...] Orientation Straight 05/10/2023 10 :50 AM EDT Last Filed Vital Signs Vital Sign Reading [...] Mass Index 26.12 05/26/2025 10:18 AM EDT Plan of Treatment Health Maintenance Due Date Last Done Comments Family Planning (PISQ) 1997 HPV Vaccines (1 - 3-dose series) 1997 Hepatitis B Vaccines (2 of 2 - CpG 2-dose series) 01/15/2023 12/18/2022 Cervical Cancer Screening 07/25/2024 HPV/Cotest 07/25/2024 05/30/2023 Pap Smear 07/25/2024 05/30/2023 Alcohol/Substance Use Screening 03/24/2026 03/24/2025 Depression Screening 03/24/2026 03/24/2025, 03/24/2025 Disability Screening 03/24/2026 03/24/2025 SDOH Screening 03/24/2026 03/24/2025 Mammogram 05/19/2026 05/19/2024, 05/14/2023 Diabetes: Hemoglobin A1C 05/21/2026 025, 05/10/2023 Tobacco Screening 05/26/2026 05/26/2025 Zoster Vaccines (1 of 2) 2032 DTaP/Tdap/Td Vaccines (2 - T d or Tdap) 12/18/2032 12/18/2022 RSV Patients and Patients Aged 60 years or older (1 - 1-dose 75+ series) 2057 Pneumococcal Vaccine: Pediatrics (0 to 5 Years) and At-Risk Patients (6 to 49) Years Completed 06/13/2023 HIV Screening Completed 05/21/2025, 05/10/2023 Hepatitis C Screening Completed 05/21/2025 , 05/10/2023 COVID-19 Vaccine Completed 05/26/2025 Influenza Vaccine Completed 05/26/2025, 05/10/2023 HIB Vaccines Aged Out No longer eligi ble based on patient's age to complete this topic Hepatitis A Vaccines Aged Out No long er eligible based on patient's age to complete this topic IPV Vaccines Aged Out No longer eligi ble based on patient's age to complete this topic Meningococcal B Vaccine Aged Out No l onger eligible based on patient's age to complete this topic Meningococcal Vaccine Aged Out No lety radhika eligible based on patient's age to complete this topic RSV under 20 months Aged Out No longe r eligible based on patient's age to complete this topic Rotavirus Vaccines Aged Out No longer eligible based on patient's age to complete this topic Procedures Procedure Name Priority Date/Time Associated Diagnosis Comments XR CHEST 2 VIEWS Routine 05/26/2025 12:0 0 PM EDT Dermatomyositis (CMS/HCC) (HCC) POCT , URINE Routine 05/26/2025 11:28 AM EDT Amenorrhea CA 125 Routine 05/21/2025 11:00 AM EDT Annual physical exam TSH W/REFLEX TO FT4 Routine 05/21/2025 1 1:00 AM EDT Annual physical exam HEMOGLOBIN A1C Routine 05/21/2025 11:00 AM EDT Annual physical exam CBC Routine 05/21/2025 11:00 AM EDT Annual physical exam COMPREHENSIVE METABOLIC PANEL Routine 05/21/2025 11:00 AM EDT Annual physical exam SYPHILIS SCREEN Routine 05/21/2025 11:00 AM EDT Annual physical exam LIPID PANEL, STANDARD Routine 05/21/2025 11:00 AM EDT Annual physical exam HIV 1/2 ANTIGEN/ANTIBODY, FOURTH GENERATION W/RFL Routine 05/21/2025 11:00 AM EDT Annual physical exam HEPATITIS C AB W/REFL TO HCV RNA, QN, PCR Routine 05/21/2025 11:00 AM EDT Annual physical exam HEPATITIS B SURFACE ANTIGEN, EIA Routine 05/21/2025 11:00 AM EDT Annual physical exam HEPATITIS B SURFACE ANTIBODY, QUALITATIVE Routine 05/21/2025 11:00 AM EDT Annual physical exam HEPATITIS B CORE AB TOTAL Routine 05/21/2025 11:00 AM EDT Annual physical exam CHLAMYDIA/TRICHOMONAS/ NEISSERIA GONORRHOEAE, PCR, URINE Routine 05/21/2025 12:00 AM EDT Annual physical exam BI MAMMOGRAM SCREENING TOMOSYNTHESIS BILATERAL Routine 05/19/2024 2:20 PM EDT HPV MRNA E6/E7 REFLEX TO HPV 16, 18/45 Routine 05/30/2023 9:43 AM EDT PAP SMEAR Routine 05/30/2023 9:43 AM EDT from Last 3 Months or Most Recently Relevant to Health Maintenance Results * XR Chest 2 Views (05/26/2025 12:00 PM EDT) Anatomical Region Laterality Modality Chest Radiographic Shirley ging 05/26/2025 12:0 0 PM EDT Narrative 05/26/2025 12:19 PM EDT [address] [address] XRay Report Signed Patient: Kelsey Stauffer MR#: [id number] : 1980 Acct:[id number] Age/Sex: 44 / F ADM Date: 05/26/25 [facility] Attending Dr: Angeles Rea MD Ordering Physician: Angeles Daugherty MD Date of Service: 05/26/25 Procedure(s): XR chest 2V Accession Number(s): [id number] cc: Angeles Daugherty MD Reason for Exam: Patient with dermatomyositis to rule out any lung lesions. EXAMINATION: XR CHEST CLINICAL INFORMATION: Patient with dermatomyositis to rule out any lung lesions. COMPARISON: 05/02/2023 TECHNIQUE: 2 views of the chest were obtained. FINDINGS: No significant abnormality is noted involving the heart, lungs, mediastinum, bony thorax or soft tissues. XR/XR chest 2V IMPRESSION: No acute disease, stable x-ray Electronically signed by: Jim Thorne MD 05/26/2025 12:16 PM EDT RP Dictated By: Jim Thorne MD Signed By: <Electronically signed by Jim Thorne MD in OV> 05/26/25 1216 DD/ 1200 TD/TT: 05/26/25 1206 Tailercpa: Procedure Note Donotuseinterpreter, Image - 05/26/[address] [address] XRay Report Signed Patient: Kelsey Stauffer MR#: [id number] : 1980Acct:[id number] Age/Sex: 44 / FADM Date: 05/26/25 Loc: HO.[facility]X Attending Dr: Angeles Rea MD Ordering Physician: Angeles Daugherty MD Date of Service: 05/26/25 Procedure(s): XR chest 2V Accession Number(s): [id number] cc: Angeles Daugherty MD Reason for Exam: Patient with dermatomyositis to rule out any lunglesions. EXAMINATION: XR CHEST CLINICAL INFORMATION: Patient with dermatomyositis to rule out any lung lesions. COMPARISON: 05/02/2023 TECHNIQUE: 2 views of the chest were obtained. FINDINGS: No significant abnormality is noted involving the heart, lungs, mediastinum, bony thorax or soft tissues. XR/XR chest 2V IMPRESSION: No acute disease, stable x-ray Electronically signed by: Jim Thorne MD 05/26/2025 12:16 PM EDT Dictated By: Jim Thorne MD Signed By: <Electronically signed by Jim Thorne MD in OV> 05/26/25 1216 DD/ 1200 TD/TT: 05/26/25 1206 Tailercpa: Angeles Rea MD IMG XR PROCEDURES Final Result * POCT Urine (05/26/2025 11:28 AM EDT) Preg Test, Ur Negative Negative, Indeterminate, None Detected, Invalid, Specimen unsatisfactory for evaluation, Weakly Positive, 2+ QC Media Lot # [id number] Lot# Expiration Date [id number] Urine 05/26/2025 11:2 8 AM EDT Angeles Rea MD POINT OF CARE [place] T ENTER/EDIT ORDERABLES Final Result * Syphilis Screen (05/21/2025 11:00 AM EDT) Pathologist [facility] Syphilis Screen Nonreactive Nonreactive [facility] Blood 05/21/2025 11:0 0 AM EDT 05/21/2025 1:29 PM EDT Angeles Rea MD LAB BLOOD ORDERAB LES Final Result [facility] [address] [place] [phone] * TSH with Reflex to Free T4 (05/21/2025 11:00 AM EDT) Pathologist [facility] TSH reflex Free T4 1.11 0.32 - 4.0 uIU/mL [facility] Blood 05/21/2025 11:0 0 AM EDT 05/21/2025 1:29 PM EDT us Angeles Rea MD LAB BLOOD ORDERAB LES Final Result Performing Organization Address [facility] Co de Phone Number [facility] [address] [place] [phone] * Hepatitis C Antibody with Reflex to HCV, RNA, Quantitative, Real-Time PCR (05/21/2025 11:00 AM EDT) Pathologist [facility] Hepatitis C Antibody Nonreactive Nonreactive [facility] Comment:Antibodies to HCV no t detected; does not exclude early acuteHCV infection. Blood Venous blood specimen / Unknown 05/21/2025 11:00 AM EDT 05/21/2025 1:29 PM EDT us Angeles Rea MD LAB BLOOD ORDERAB LES Final Result Performing Organization Address [facility] Co de Phone Number [facility] [address] [place] [phone] * Hepatitis B surface antigen, EIA (05/21/2025 11:00 AM EDT) [facility] Hepatitis B Surface Ag Negative Negative [facility] Blood Venous blood specimen / Unknown 05/21/2025 11:00 AM EDT 05/21/2025 1:29 PM EDT us Angeles Rea MD LAB BLOOD ORDERAB LES Final Result Performing Organization Address [facility] Co de Phone Number [facility] [address] [place] [phone] * Hepatitis B Core Antibody, Total (05/21/2025 11:00 AM EDT) Pathologist [facility] Hepatitis B Core Antibody Nonreactive Nonreactive [facility] Blood Venous blood specimen / Unknown 05/21/2025 11:00 AM EDT 05/21/2025 1:29 PM EDT Angeles Rea MD LAB BLOOD ORDERAB LES Final Result Performing Organization Address [facility]/ZIP Co de Phone Number [facility] [address] [place] [phone] * HIV-1/2 Antigen and Antibodies, Fourth Generation, with Reflexes (05/21/2025 11:00 AM EDT) Pathologist [facility] HIV AB/AG Nonreactive Nonreactive [facility] Comment:HIV-1 p24 Ag and/or HIV-1/HIV-2 Ab not detected.A test result that is nonreactive does not exclude thepossibility of exposure to or infection with HIV-1 and/orHIV-2. Nonreactive results in this assay for individualswith prior exposure to HIV-1 and/or HIV-2 may be due toantigen and antibody levels that are below the limit ofdetection of this assay.The Michael Bieker HIV Ag/Ab Combo assay result andsupplemental assay results should be interpreted inconjunction with the patient's clinical presentation,history and other laboratory results. If the results areinconsistent with clinical evidence, additional testing issuggested to confirm the result. Blood Venous blood specimen / Unknown 05/21/2025 11:00 AM EDT 05/21/2025 1:29 PM EDT Angeles Rea MD LAB BLOOD ORDERAB LES Final Result Performing Organization Address [facility]/ZIP Co de Phone Number [facility] [address] [place] [phone] * Hepatitis B Surface Antibody, Qualitative (05/21/2025 11:00 AM EDT) Pathologist [facility] ~Hepatitis B Surface Antibody REACTIVE Nonreactive [facility] Comment:REACTIVE: > 11.99 mI U/mL Blood Venous blood specimen / Unknown 05/21/2025 11:00 AM EDT 05/21/2025 1:29 PM EDT Angeles Rea MD LAB BLOOD ORDERAB LES Final Result [facility] [address] [place] [phone] * CBC (05/21/2025 11:00 AM EDT) White Blood Count 5.5 4.8 - 10.8 X10*3/uL [facility] Red Blood Count 4.61 4.20 - 5.50 X10*6/uL [facility] Hemoglobin 12.5 12.0 - 16.0 g/dl [facility] Hematocrit 40.0 37.0 - 47.0 % [facility] Mean Corpuscular Volume 86.8 80.0 - 98.0 fL [facility] Mean Corpuscular Hemoglobin 27.1 27.0 - 33.0 pg [facility] Mean Corpuscular HGB Conc 31.3 31.0 - 35.0 g/dl [facility] Red Cell Distribution Width 13.5 11.0 - 16.0 % [facility] Platelet Count 339 160 - 400 X10*3/uL [facility] Mean Platelet Volume 9.9 9.4 - 12.3 fL [facility] NRBC Pct Auto 0.0 0.0 - 0.2 /100WBC [facility] NRBC Abs Auto 0.000 0.0 - 0.012 X10*3/uL [facility] Blood Venous blood specimen / Unknown 05/21/2025 11:00 AM EDT 05/21/2025 1:29 PM EDT us Angeles Rea MD LAB BLOOD ORDERAB LES Final Result Performing Organization Address City/[facility]/ZIP Co de Phone Number [facility] [address] [place] [phone] * CA 125 (05/21/2025 11:00 AM EDT) CA 125 9 <35 U/mL [facility] Comment:This test was perfor med using the SiemensChemiluminescent method. Values obtained fromdifferent assay methods cannot be usedinterchangeably. CA 125 levels, regardless ofvalue, should not be interpreted as absoluteevidence of the presence or absence of disease.THIS TEST WAS PERFORMED AT:[employer] [place] [phone] MONTELONGO MD Blood Venous blood specimen / Unknown 05/21/2025 11:00 AM EDT 05/21/2025 1:15 PM EDT Angeles Rea MD LAB BLOOD ORDERAB LES Final Result Performing Organization Address [facility]/ZIP Co de Phone Number [facility] [address] [place] [phone] * (ABNORMAL) Hemoglobin A1c (05/21/2025 11:00 AM EDT) Hemoglobin A1c 6.3(H) <6.0 % [facility] Comment:Hemoglobin A1C Refer ence Range Adults: 4.8 - 6.0 % Non diabetic: < 6.0 % Goal: < 7.0 %Additional Action Suggested: > 8.0 %Note: Hemoglobin A1c results are invalid for patients with abnormal amounts of HbF. Blood transfusions may impact the HbA1c concentration in the patient sample. Estimated Average Glucose 134 mg/dL [facility] Comment:eAG = Estimated ave rage glucose which is %A1C expressed asaverage glucose, using the formula of the L1C-JksrgwmXgzcdst Glucose study (ADAG), Diabetes Care, Vol.31,#8,Mar. 2007 Blood Venous blood specimen / Unknown 05/21/2025 11:00 AM EDT 05/21/2025 1:29 PM EDT Angeles Rea MD LAB BLOOD ORDERAB LES Final Result Performing Organization Address [facility]/ZIP Co de Phone Number [facility] [address] [place] [phone] * (ABNORMAL) Lipid Panel, Standard (05/21/2025 11:00 AM EDT) Triglycerides 144 <150 mg/dL [facility] Comment:Desirable Triglyceri de: less than 150 mg/dLBorderline High Triglyceride 150-199 mg/dLHigh Triglyceride: 200-499 mg/dLVery High Triglyceride: greater than or equal to 5OO mg/dL Cholesterol 189 <200 mg/dL [facility] Comment:Desirable Cholestero l: less than 200 mg/dLBorderline High Cholesterol: 200-239 mg/dLHigh Cholesterol: greater than 239 mg/dL LDL Cholesterol Calculated 127(H) <100 mg/dL [facility] Comment:Desirable LDL: less than 100 mg/dLNear Optimal/Above Optimal LDL: 110- 129 mg/dLBorderline High LDL: 130-159 mg/dLHigh LDL: 160-189 mg/dLVery High LDL: greater than or equal to 190 mg/dL HDL Cholesterol 34(L) >40 mg/dL [facility] Comment:Desirable HDL: great er than 40 mg/dL Note: This HDL assay may give artificially low results in patients with liver disease. Blood Venous blood specimen / Unknown 05/21/2025 11:00 AM EDT 05/21/2025 1:29 PM EDT us Angeles Rea MD LAB BLOOD ORDERAB LES Final Result [facility] [address] [place] [phone] * (ABNORMAL) Comprehensive Metabolic Panel (05/21/2025 11:00 AM EDT) Sodium 141 135 - 145 mmol/L [facility] Potassium 4.2 3.3 - 5.1 mmol/L [facility] Chloride 109(H) 96 - 108 mmol/L [facility] Carbon Dioxide 25 22 - 29 mmol/L [facility] Anion Gap 11(L) 12 - 20 [facility] Urea Nitrogen (BUN) 9 9 - 16 mg/dL [facility] Creatinine, Serum 0.49(L) 0.5 - 1.4 mg/dL [facility] Estimated Glomerular Filt Rate >60 [facility] Comment:Chronic Kidney Disea se: Estimated GFR < 60 mL/min/1.54j6Phwvcp Kidney Disease: Estimated GFR < 15 mL/min/1.73m2 Glucose 92 60 - 115 mg/dL [facility] Calcium 9.0 8.4 - 10.2 mg/dL [facility] Bilirubin, Total 0.2 0.0 - 1.0 mg/dL [facility] Aspartate Amino Transferase 118(H) 5 - 31 U/L [facility] Alanine Aminotransferase 175(H) 0 - 31 U/L [facility] Total Protein 7.8 6.5 - 8.0 g/dL [facility] Albumin Level 4.4 3.5 - 5.0 g/dL [facility] Alkaline Phosphatase 81 39 - 117 U/L [facility] Blood Venous blood specimen / Unknown 05/21/2025 11:00 AM EDT 05/21/2025 1:29 PM EDT us Angeles Rea MD LAB BLOOD ORDERAB LES Final Result [facility] [address] [place] [phone] * Chlamydia/Trichomonas/Neisseria gonorrhoeae, PCR, Urine (05/21/2025 12:00 AM EDT) CT PCR, Urine NOT DETECTED Not Detect. [facility] Comment:A not detected test result does not exclude the possibilityof infection because test results can be affected byimproper specimen collection, concurrent antibiotic therapy,or the number of organisms in the specimen which may bebelow the sensitivity of the test. As with many diagnostictests, results from the Xpert CT/NG assay should beinterpreted in conjunction with other laboratory andclinical data available to the clinician.The Xpert CT/NG assay should not be used for the evaluationof suspected sexual abuse or for other medico-legalindications. Additional testing is recommended in anycircumstance when false positive or false negative resultscould lead to adverse medical, social or psychologicalconsequences. NG PCR, Urine NOT DETECTED Not Detect. [facility] Comment:A not detected test result does not exclude the possibilityof infection because test results can be affected byimproper specimen collection, concurrent antibiotic therapy,or the number of organisms in the specimen which may bebelow the sensitivity of the test. As with many diagnostictests, results from the Xpert CT/NG assay should beinterpreted in conjunction with other laboratory andclinical data available to the clinician.The Xpert CT/NG assay should not be used for the evaluationof suspected sexual abuse or for other medico-legalindications. Additional testing is recommended in anycircumstance when false positive or false negative resultscould lead to adverse medical, social or psychologicalconsequences. Urine (Urine, Random) 05/21/2025 05/21/2025 Angeles Rea MD LAB URINE ORDERAB LES Final Result [facility] [address], [place] [phone] * BI Mammogram Screening Tomosynthesis Bilateral (05/19/2024 2:20 PM EDT) Anatomical Region Laterality Modality Breast Bilateral Mammography 05/19/2024 2:20 PM EDT Narrative 05/30/2024 4:48 PM EDT [facility] [address] [place] [address] [place] [address] Mammography Report Signed Patient: Kelsey Avalos MR#: [id number] : 1980 Acct:[id number] Age/Sex: 43 / F ADM Date: 05/19/24 Loc: [facility] Attending Dr: Angeles Rea MD Ordering Physician: Angeles Daugherty MD Re sults: 1Negative Date of Service: 05/19/24 Follow Up: 1 Year From Orig inal Mammogram Procedure(s): MM tomosynthesis screening BI Accession Number(s): [id number] cc: Angeles Daugherty MD EXAMINATION: MM SCREENING DIGITAL BREAST TOMOSYNTHESIS, BILATERAL CLINICAL INFORMATION: Screening. Asymptomatic. COMPARISON: Mammography: Comparison is made with available priors TECHNIQUE: Digital breast mammography with tomosynthesis is performed in both the craniocaudal and mediolateral oblique views along with computer-aided detection (CAD). FINDINGS: The breasts are heterogeneously dense, which may obscure small masses (ACR BI-RADS breast composition Category c). There are no significant masses, abnormal calcifications, or other abnormalities. MM/MM tomosynthesis screening BI IMPRESSION: No mammographic evidence of malignancy. ASSESSMENT: BI-RADS BI-RADS 1 - Negative RECOMMENDATION: Routine annual mammography screening. 1 year F/U This examination should not preclude the clinical evaluation of a suspicious palpable abnormality. This patient's information was entered into a reminder system with a target due date for their next mammogram. Electronically signed by: Michelle Dinero DO 05/30/2024 04:45 PM EDT Dictated By: Michelle Dinero DO Signed By: <Electronically signed by Michelle Dinero DO in OV> 05/30/24 1645 DD/ 1420 TD/TT: 05/19/24 1435 Tailercpa: Procedure Note Donotuseinterpreter, Image - 05/30/2024 [facility] [address] [place] [address] Mammography Report Signed Patient: Dakota Avalos#: [id number] : 1980Acct:[id number] Age/Sex: 43 / FADM Date: 05/19/24 Loc: HO.MAMMO Attending Dr: Angeles Rea MD Ordering Physician: Angeles Daugherty sults: 1Negative Date of Service: 05/19/24Follow Up: 1 Year From Orig inal Mammogram Procedure(s): MM tomosynthesis screening BI Accession Number(s): [id number] cc: Angeles Daugherty MD EXAMINATION: MM SCREENING DIGITAL BREAST TOMOSYNTHESIS, BILATERAL CLINICAL INFORMATION: Screening. Asymptomatic. COMPARISON: Mammography: Comparison is made with available priors TECHNIQUE: Digital breast mammography with tomosynthesis is performed in both the craniocaudal and mediolateral oblique views along with computer-aided detection (CAD). FINDINGS: The breasts are heterogeneously dense, which may obscure small masses (ACR BI-RADS breast composition Category c). There are no significant masses, abnormal calcifications, or other abnormalities. MM/MM tomosynthesis screening BI IMPRESSION: No mammographic evidence of malignancy. ASSESSMENT: BI-RADS BI-RADS 1 - Negative RECOMMENDATION: Routine annual mammography screening. 1 year F/U This examination should not preclude the clinical evaluation of a suspicious palpable abnormality. This patient's information was entered into a reminder system with a target due date for their next mammogram. Electronically signed by: Michelle Dinero DO 05/30/2024 04:45 PM EDT Dictated By: Michelle Dinero DO Signed By: <Electronically signed by Michelle Dinero DO in OV> 05/30/24 1645 DD/ 1420 TD/TT: 05/19/24 1435 Tailercpa: Angeles Rea MD IMG BI PROCEDURES Final Result * (ABNORMAL) HPV mRNA E6/E7 w/Reflex to HPV Genotypes 16, 18/45 (05/30/2023 9:43 AM EDT) HPV nRNA E6/E7 Detected(A ) Not Detected [facility] Comment:Methodology: Transcr iption-Mediated AmplificationThis assay detects E6/E7 viral messenger RNA (mRNA) from 14high-risk HPV types (16,18,31,33,35,39,45,51,52,56,58,59,66,68).Cervical sources are required for HPV testing.If a vaginal source from a patient who has had atotal hysterectomy with removal of cervix wassubmitted, please contact the testing laboratoryfor alternative testing options.For additional information, please refer [email or web address](This link if provided for information/educational purposes only.)THIS TEST WAS PERFORMED AT:[employer] [id number] [place] [phone] MONTELONGO MD HPV 16 RNA NOT DETECTED NOT DETECTED [facility] HPV 18/45 RNA NOT DETECTED NOT DETECTED [facility] Comment:Methodology: Transcr iption Mediated AmplificationCervical sources are required for HPV testing.If a vaginal source from a patient who has had atotal hysterectomy with removal of cervix wassubmitted, please contact the testing laboratoryfor alternative testing options.THIS TEST WAS PERFORMED AT:[employer] [id number] [place] [address]QLTCDMIKIE MONTELONGO MD 05/30/2023 9:43 AM EDT 05/31/2023 7:00 AM EDT Denis Whitt CNM LAB CYTOLOGY ORDERABLES F inal Result [facility] [address] [place] [phone] * Pap Smear (05/30/2023 9:43 AM EDT) 05/30/2023 9:43 AM EDT 05/31/2023 7:00 AM EDT Manisha [facility] - 06/07/2023 12:37 PM EDT ----- ------- Name: Kelsey Avalos Age/Sex: 42/F : 1980 Unit#: [id number] Attend Dr: DENIS WHITT CNM Re05/30/23 Status: DEP REF [facility] Disch: ----- ------- SPEC : [id number] RECD: 05/31/23 STATUS: HAO [place] NUM: [id number] JS: 05/30/23 [facility] [address]: DENIS WHTIT CNM ENTERED: 05/31/23 SP TYPE: Pap Smr OTHR DR: ORDERED: Pap Smear, PAP path review Interpretation General Category: Epithelial cell abnormality. Adequacy: Endocervical component present; acid-wash performed. Interpretation: Low grade squamous intraepithelial lesion (KARL I). Clinical Information LMP: Unknown date Previous PAP test: Unknown date/findings Material Received ThinPrep-Cervical ----- ------- Signed (signature on file) Spenser Gunn MD 06/07/23 1237 ----- ------- END OF REPORT Denis CLAYTON LAB CYTOLOGY ORDERABLES F inal Result [facility] [address] [place] [phone] from Last 3 Months or Most Recently Relevant to Health Maintenance Insurance [facility] 2 Care Teams Claims Administrator Relationship Specialty Start Date End Date Angeles Daugherty MD [address] [place] [phone] PCP - General Internal Medicine 05/10/23
== END 2025-05-26 11:27 | disposition home or self-care (01) ==
LOC: HO.HHCX 11:26
PROVIDERS: PCP Student in an Organized Health Care Education/Training Program; Visit Provider Student in an Organized Health Care Education/Training Program
DX: M33.13 Other dermatomyositis without myopathy (principal)
CPT/HCPCS: 71046

== ENCOUNTER → 2025-05-26 11:35 | Outpatient (BNV) | payer OTHER, SELFPAY | PROVIDERS: PCP Student in an Organized Health Care Education/Training Program; Visit Provider Radiology Diagnostic Radiology | DX: M33.10 Other dermatomyositis, organ involvement unspecified (principal) | CPT/HCPCS: 71046 ==

== ENCOUNTER 2025-06-10 10:39 | Outpatient (REF) | payer OTHER, SELFPAY ==
--- OUTSIDE RECORDS SUMMARY | 2025-06-10 13:13 | XMS_ITS | Clinical Summary ---
Author Organization [employer] Address [address] [facility] [address] [place] [address] Care Team Providers Care Mold Tooling Technician Name Role Phone Angeles Daugherty MD Primary [...] Problems Problem Noted Date Diagnosed Date Prediabetes 05/26/2025 Transaminitis 05/26/2025 Amenorrhea 05/26/2025 HLD (hyperlipidemia) 05/26/2025 Overweight (BMI 25.0-29.9) 03/24/2025 Abnormal cervical Papanicolaou smear 03/24/2025 Dermatomyositis (CMS/HCC) 05/10/2023 Health care maintenance 05/10/2023 History of shingles 05/10/2023 Aortic regurgitation 05/10/2023 Tympanic membrane rupture, left 05/10/2023 Resolved Problems Problem Noted Date Diagnosed Date Resolved Date Anxiety 05/10/2023 03/24/2025 Encounters Date Type Department Care Team Description 06/03/[address] [address] Angeles Daugherty MD 05/26/2025 10:00 AM EDT Office Visit [address] [address] Angeles Daugherty MD Transaminitis (Primary Dx); Hot flashes; History of prediabetes; Hyperlipidemia, unspecified hyperlipidemia type; Overweight; Encounter for immunization; Amenorrhea; Overweight (BMI 25.0-29.9); Abnormal cervical Papanicolaou smear, unspecified abnormal pap finding; Health care maintenance; Dermatomyositis ([facility]) (HCC); Prediabetes 05/26/2025 Travel 05/25/[address] [address] Angeles Daugherty MD chart prep 05/21/2025 Results Follow-Up [address] [address] Angeles Daugherty MD Hepatitis B Core Antibody, Total, Hepatitis B Surface Antibody, Qualitative, Hepatitis B surface antigen, EIA, Additional followed-up results: 10 03/24/2025 11:30 AM EDT Office Visit [address] [address] Angeles Daugherty MD Dermatomyositis ([facility]) (Primary Dx); Dietary counseling; Exercise counseling; Annual physical exam; Tympanic membrane rupture, left; Health care maintenance; Overweight (BMI 25.0-29.9); Abnormal cervical Papanicolaou smear, unspecified abnormal pap finding 03/24/2025 Travel 03/23/[address] [address] Angeles Daugherty MD chartprep 03/17/2025 Orders Only [address] [address] Angeles Daugherty MD Dermatomyositis ([facility]) (Primary Dx) 03/17/2025 Patient Outreach [facility] [address] [place], [place] [phone] Angeles Daugherty MD Pre-visit Planning ([facility] unable to reach, Disconnected) 03/17/2025 Telephone [facility] MEDIC[facility] [address] [place] [address] Angeles Daugherty MD Patient Question from Last 3 Months Immunizations Immunization Administration Dates Next Due HepB-CpG 12/18/2022 Influenza injectable quadrivalent preservative f ree 05/10/2023 Influenza, seasonal, injectable, preservative fr ee 05/26/2025 Pfizer Covid-19 Vaccine 12+ 05/26/2025 Pneumococcal Conjugate PCV 20 06/13/2023 Tdap [...] 05/26/2025 10:18 AM EDT Plan of Treatment Upcoming Encounters Date Type Department Care Team (Late st Contact Info) Description 08/21/2025 1:00 PM EST Nutrition [facility] DI[facility]ETES/NUTRITION [address] [place] [address] [place] [address] Health Maintenance Due Date Last Done Comments [...] PM EDT Narrative 05/26/2025 12:19 PM EDT [address] [address] XRay Report Signed Patient: Kelsey Stauffer MR#: [id number] : 1980 Acct:[id number] Age/Sex: 44 / F ADM Date: 05/26/25 Loc: .HHCX Attending Dr: Angeles Rea MD Ordering Physician: Angeles Daugherty MD Date of Service: 05/26/25 Procedure(s): XR chest 2V Accession Number(s): [id number] cc: Angeles Daugherty MD Reason for Exam: [...] 05/26/25 1216 DD/ 1200 TD/TT: 05/26/25 1206 Mannequin Molder: Procedure Note Donotuseinterpreter, Image - 05/26/[address] [address] XRay Report Signed Patient: Kelsey Stauffer MR#: [id number] : 1980Acct:[id number] Age/Sex: 44 / FADM Date: 05/26/25 Loc: HO.HHCX Attending Dr: Angeles Rea MD Ordering Physician: Angeles Daugherty MD Date of Service: 05/26/25 Procedure(s): XR chest 2V Accession Number(s): [id number] cc: Angeles Daugherty MD Reason for Exam: [...] 05/26/25 1216 DD/ 1200 TD/TT: 05/26/25 1206 Mannequin Molder: Angeles Rea MD IMG XR PROCEDURES Final Result * POCT Urine (05/26/2025 11:28 AM EDT) Pathologist [facility] Preg Test, Ur Negative Negative, Indeterminate, None Detected, Invalid, Specimen unsatisfactory for evaluation, Weakly Positive, 2+ QC Media Lot # [id number] Lot# Expiration Date [id number] Urine 05/26/2025 11:2 8 AM EDT Angeles Rea MD POINT OF CARE [place] T ENTER/EDIT ORDERABLES Final Result * Syphilis Screen (05/21/2025 11:00 AM EDT) Pathologist [facility] Syphilis Screen Nonreactive Nonreactive [facility] Blood 05/21/2025 11:0 0 AM EDT 05/21/2025 1:29 PM EDT us Angeles Rea MD LAB BLOOD ORDERAB LES Final Result Performing Organization Address City/[facility]/ZIP Co de Phone Number [facility] [address] [place] [phone] * TSH with Reflex to Free T4 (05/21/2025 11:00 AM EDT) TSH reflex Free T4 1.11 0.32 - 4.0 uIU/mL [facility] Blood 05/21/2025 11:0 0 AM EDT 05/21/2025 1:29 PM EDT us Angeles Rea MD LAB BLOOD ORDERAB LES Final Result Performing Organization Address [facility] Co de Phone Number [facility] [address] [place] [phone] * Hepatitis C Antibody with Reflex to HCV, RNA, Quantitative, Real-Time PCR (05/21/2025 11:00 AM EDT) Pathologist [facility] Hepatitis C Antibody Nonreactive Nonreactive [facility] Comment:Antibodies to HCV no t detected; does not exclude early acuteHCV infection. Blood Venous blood specimen / Unknown 05/21/2025 11:00 AM EDT 05/21/2025 1:29 PM EDT us Angeles Rea MD LAB BLOOD ORDERAB LES Final Result Performing Organization Address [facility]/ZIP Co de Phone Number [facility] [address] [place] [phone] * Hepatitis B surface antigen, EIA (05/21/2025 11:00 AM EDT) Hepatitis B Surface Ag Negative Negative [facility] Blood Venous blood specimen / Unknown 05/21/2025 11:00 AM EDT 05/21/2025 1:29 PM EDT us Angeles Rea MD LAB BLOOD ORDERAB LES Final Result Performing Organization Address City/[facility]/ZIP Co de Phone Number [facility] [address] [place] [phone] * Hepatitis B Core Antibody, Total (05/21/2025 11:00 AM EDT) Hepatitis B Core Antibody Nonreactive Nonreactive [facility] Blood Venous blood specimen / Unknown 05/21/2025 11:00 AM EDT 05/21/2025 1:29 PM EDT us Angeles Rea MD LAB BLOOD ORDERAB LES Final Result Performing Organization Address [facility] Co de Phone Number [facility] [address] [place] [phone] * HIV-1/2 Antigen and Antibodies, Fourth Generation, with Reflexes (05/21/2025 11:00 AM EDT) Pathologist [facility] HIV AB/AG Nonreactive Nonreactive [facility] Comment:HIV-1 p24 Ag and/or HIV-1/HIV-2 Ab not detected.A test result that is nonreactive does not exclude thepossibility of exposure to or infection with HIV-1 and/orHIV-2. Nonreactive results in this assay for individualswith prior exposure to HIV-1 and/or HIV-2 may be due toantigen and antibody levels that are below the limit ofdetection of this assay.The [employer] HIV Ag/Ab Combo assay result andsupplemental assay results should be interpreted inconjunction with the patient's clinical presentation,history and other laboratory results. If the results areinconsistent with clinical evidence, additional testing issuggested to confirm the result. Blood Venous blood specimen / Unknown 05/21/2025 11:00 AM EDT 05/21/2025 1:29 PM EDT us Angeles Rea MD LAB BLOOD ORDERAB LES Final Result Performing Organization Address [facility] Co de Phone Number [facility] [address] [place] [phone] * Hepatitis B Surface Antibody, Qualitative (05/21/2025 11:00 AM EDT) Pathologist [facility] ~Hepatitis B Surface Antibody REACTIVE Nonreactive [facility] Comment:REACTIVE: > 11.99 mI U/mL Blood Venous blood specimen / Unknown 05/21/2025 11:00 AM EDT 05/21/2025 1:29 PM EDT us Angeles Rea MD LAB BLOOD ORDERAB LES Final Result Performing Organization Address [facility] Co de Phone Number [facility] [address] [place] [phone] * CBC (05/21/2025 11:00 AM EDT) [facility] White Blood Count 5.5 4.8 - 10.8 X10*3/uL [facility] Red Blood Count 4.61 4.20 - 5.50 X10*6/uL [facility] Hemoglobin 12.5 12.0 - 16.0 g/dl [facility] Hematocrit 40.0 37.0 - 47.0 % [facility] Mean Corpuscular Volume 86.8 80.0 - 98.0 fL [facility] Mean Corpuscular Hemoglobin 27.1 27.0 - 33.0 pg [facility] Mean Corpuscular HGB Conc 31.3 31.0 - 35.0 g/dl [facility] Red Cell Distribution Width 13.5 11.0 - 16.0 % [facility] Platelet Count 339 160 - 400 X10*3/uL [facility] Mean Platelet Volume 9.9 9.4 - 12.3 fL [facility] NRBC Pct Auto 0.0 0.0 - 0.2 /100WBC [facility] NRBC Abs Auto 0.000 0.0 - 0.012 X10*3/uL [facility] Blood Venous blood specimen / Unknown 05/21/2025 11:00 AM EDT 05/21/2025 1:29 PM EDT Angeles Rea MD LAB BLOOD ORDERAB LES Final Result Performing Organization Address [facility] Co de Phone Number [facility] [address] [place] [phone] * CA 125 (05/21/2025 11:00 AM EDT) CA 125 9 <35 U/mL [facility] Comment:This test was perfor med using the SiemensChemiluminescent method. Values obtained fromdifferent assay methods cannot be usedinterchangeably. CA 125 levels, regardless ofvalue, should not be interpreted as absoluteevidence of the presence or absence of disease.THIS TEST WAS PERFORMED AT:[employer] [place] [phone] MONTELONGO MD Blood Venous blood specimen / Unknown 05/21/2025 11:00 AM EDT 05/21/2025 1:15 PM EDT Angeles Rea MD LAB BLOOD ORDERAB LES Final Result Performing Organization Address [facility] Co de Phone Number [facility] [address] [place] [phone] * (ABNORMAL) Hemoglobin A1c (05/21/2025 11:00 AM EDT) Hemoglobin A1c 6.3(H) <6.0 % [facility] Comment:Hemoglobin A1C Refer ence Range Adults: 4.8 - 6.0 % Non diabetic: < 6.0 % Goal: < 7.0 %Additional Action Suggested: > 8.0 %Note: Hemoglobin A1c results are invalid for patients with abnormal amounts of HbF. Blood transfusions may impact the HbA1c concentration in the patient sample. Estimated Average Glucose 134 mg/dL [facility] Comment:eAG = Estimated ave rage glucose which is %A1C expressed asaverage glucose, using the formula of the T6T-BtmgidpQrxjndz Glucose study (ADAG), Diabetes Care, Vol.31,#8,Mar. 2007 Blood Venous blood specimen / Unknown 05/21/2025 11:00 AM EDT 05/21/2025 1:29 PM EDT us Angeles Rea MD LAB BLOOD ORDERAB LES Final Result [facility] [address] [place] [phone] * (ABNORMAL) Lipid Panel, Standard (05/21/2025 11:00 AM EDT) Triglycerides 144 <150 mg/dL [facility] Comment:Desirable Triglyceri de: less than 150 mg/dLBorderline High Triglyceride 150-199 mg/dLHigh Triglyceride: 200-499 mg/dLVery High Triglyceride: greater than or equal to 5OO mg/dL Cholesterol 189 <200 mg/dL [facility] Comment:Desirable Cholestero l: less than 200 mg/dLBorderline High Cholesterol: 200-239 mg/dLHigh Cholesterol: greater than 239 mg/dL LDL Cholesterol Calculated 127(H) <100 mg/dL [facility] Comment:Desirable LDL: less than 100 mg/dLNear Optimal/Above Optimal LDL: 110- 129 mg/dLBorderline High LDL: 130-159 mg/dLHigh LDL: 160-189 mg/dLVery High LDL: greater than or equal to 190 mg/dL HDL Cholesterol 34(L) >40 mg/dL [facility] Comment:Desirable HDL: great er than 40 mg/dL Note: This HDL assay may give artificially low results in patients with liver disease. Blood Venous blood specimen / Unknown 05/21/2025 11:00 AM EDT 05/21/2025 1:29 PM EDT us Angeles Rea MD LAB BLOOD ORDERAB LES Final Result [facility] [address] [place], [place] [phone] * (ABNORMAL) Comprehensive Metabolic Panel (05/21/2025 11:00 AM EDT) Sodium 141 135 - 145 mmol/L [facility] Potassium 4.2 3.3 - 5.1 mmol/L [facility] Chloride 109(H) 96 - 108 mmol/L [facility] Carbon Dioxide 25 22 - 29 mmol/L [facility] Anion Gap 11(L) 12 - 20 [facility] Urea Nitrogen (BUN) 9 9 - 16 mg/dL [facility] Creatinine, Serum 0.49(L) 0.5 - 1.4 mg/dL [facility] Estimated Glomerular Filt Rate >60 [facility] Comment:Chronic Kidney Disea se: Estimated GFR < 60 mL/min/1.30v2Hvuklu Kidney Disease: Estimated GFR < 15 mL/min/1.73m2 Glucose 92 60 - 115 mg/dL [facility] Calcium 9.0 8.4 - 10.2 mg/dL [facility] Bilirubin, Total 0.2 0.0 - 1.0 mg/dL [facility] Aspartate Amino Transferase 118(H) 5 - 31 U/L [facility] Alanine Aminotransferase 175(H) 0 - 31 U/L [facility] Total Protein 7.8 6.5 - 8.0 g/dL [facility] Albumin Level 4.4 3.5 - 5.0 g/dL [facility] Alkaline Phosphatase 81 39 - 117 U/L [facility] Blood Venous blood specimen / Unknown 05/21/2025 11:00 AM EDT 05/21/2025 1:29 PM EDT us Angeles Rea MD LAB BLOOD ORDERAB LES Final Result [facility] [address] [place] [phone] * Chlamydia/Trichomonas/Neisseria gonorrhoeae, PCR, Urine (05/21/2025 12:00 AM EDT) CT PCR, Urine NOT DETECTED Not Detect. [facility] Comment:A not detected test result does [...] NG PCR, Urine NOT DETECTED Not Detect. [facility] Comment:A not detected test result does [...] or psychologicalconsequences. Urine (Urine, Random) 05/21/2025 05/21/2025 us Angeles Rea MD LAB URINE ORDERAB LES Final Result [facility] [address] [place] [phone] * BI Mammogram Screening Tomosynthesis Bilateral (05/19/2024 2:20 PM EDT) Anatomical Region Laterality Modality Breast Bilateral Mammography 05/19/2024 2:20 PM EDT Narrative 05/30/2024 4:48 PM EDT [facility] [address] [place] [address] Mammography Report Signed Patient: Kelsey Avalos MR#: [id number] : 1980 Acct:[id number] Age/Sex: 43 / F ADM Date: 05/19/24 Loc: HO.MAMMO Attending Dr: Angeles Rea MD Ordering Physician: Angeles Daugherty MD Re sults: 1Negative Date of Service: 05/19/24 Follow Up: 1 Year From Orig inal Mammogram Procedure(s): MM tomosynthesis screening BI Accession Number(s): [id number] cc: Angeles Daugherty MD EXAMINATION: MM SCREENING [...] 05/30/24 1645 DD/ 1420 TD/TT: 05/19/24 1435 Mannequin Molder: Procedure Note Donotuseinterpreter, Image - 05/30/2024 [place] [facility] [address] [place], [place] [address] Mammography Report Signed Patient: Dakota Avalos#: [id number] : 1980Acct:[id number] Age/Sex: 43 / FADM Date: 05/19/24 Loc: HO.MAMMO Attending Dr: Angeles Rea MD Ordering Physician: Angeles Daugherty sults: 1Negative Date of Service: 05/19/24Follow Up: 1 Year From Orig inal Mammogram Procedure(s): MM tomosynthesis screening BI Accession Number(s): [id number] cc: Angeles Daugherty MD EXAMINATION: MM SCREENING [...] 05/30/24 1645 DD/ 1420 TD/TT: 05/19/24 1435 Mannequin Molder: Agneles Rea MD IMG BI PROCEDURES Final Result * (ABNORMAL) HPV mRNA E6/E7 w/Reflex to HPV Genotypes 16, 18/45 (05/30/2023 9:43 AM EDT) HPV nRNA E6/E7 Detected(A ) Not Detected [facility] Comment:Methodology: Transcr iption-Mediated AmplificationThis assay detects E6/E7 viral messenger RNA (mRNA) from 14high-risk HPV types (16,18,31,33,35,39,45,51,52,56,58,59,66,68).Cervical sources are required for HPV testing.If a vaginal source from a patient who has had atotal hysterectomy with removal of cervix wassubmitted, please contact the testing laboratoryfor alternative testing options.For additional information, please refer tohttp://[email or web address]/faq/LKF912f7(This link if provided for information/educational purposes only.)THIS TEST WAS PERFORMED AT:[employer] [address] [phone] MONTELONGO MD HPV 16 RNA NOT DETECTED NOT DETECTED [facility] HPV 18/45 RNA NOT DETECTED NOT DETECTED [facility] Comment:Methodology: Transcr iption Mediated AmplificationCervical sources are required for HPV testing.If a vaginal source from a patient who has had atotal hysterectomy with removal of cervix wassubmitted, please contact the testing laboratoryfor alternative testing options.THIS TEST WAS PERFORMED AT:[facility] [place] [phone] MONTELONGO MD 05/30/2023 9:43 AM EDT 05/31/2023 7:00 AM EDT Denis CLAYTON LAB CYTOLOGY ORDERABLES F inal Result [facility] [address] [place] [phone] * Pap Smear (05/30/2023 9:43 AM EDT) 05/30/2023 9:43 AM EDT 05/31/2023 7:00 AM EDT [facility] - 06/07/2023 12:37 PM EDT ----- ------- Name: Kelsey Avalos Age/Sex: 42/F : 1980 Unit#: [id number] Attend Dr: DENIS WHITT CNM Re05/30/23 Status: DEP [facility] Dis[facility]: ----- ------- SPEC : [id number] RECD: 05/31/23 STATUS: HAO ASHU NUM: [id number] JS: 05/30/[address] [facility] [address]: DENIS WHITT CNM ENTERED: 05/31/23 SP TYPE: Pap Smr [...] 06/07/23 1237 ----- ------- END OF REPORT us Denis Whitt [facility] CYTOLOGY ORDERABLES F inal Result [facility] [address] [place] [phone] from Last 3 Months or Most Recently Relevant to Health Maintenance Insurance [facility] 2 Care Teams Mold Tooling Technician Relationship Specialty Start Date End Date Angeles Daugherty MD [address] [place], [place] [phone] PCP - General Internal Medicine 05/10/23
--- OUTSIDE RECORDS SUMMARY | 2025-06-10 13:13 | XMS_ITS | Encounter Summary ---
Author Organization [facility] Address [address] [place] [address] Care Team Providers Care Tree Care Foreman Name Role Phone Angeles Daugherty Primary Care Provider [phone] Reason for Visit * Reason Onset Date Comments PAC Appt Request - New 08/21/2023 Encounter Details Date Type Department Care Team (Late st Contact Info) Description 08/21/2023 Telephone [facility] [address] [place] [phone] Telephone Intake, Staff PAC Appt Request - [...] Info) Description 06/29/2025 10:40 AM EST Follow-Up [facility] [address] [place] [address] Receiving Worker: Audrey Lizama MD [address] [place] [address] 10/28/2025 11:30 AM EDT Office Visit [facility] [address] [place] [address] Receiving Worker: Lakshmi Corona PA [address] [facility] [place] [address] documented as of this encounter Visit Diagnoses Not on filedocumented in this encounter Care Teams Tree Care Foreman Relationship Specialty Start Date End Date Angeles Daugherty PCP - General 06/13/23 documented as of this encounter
--- OUTSIDE RECORDS SUMMARY | 2025-06-10 13:13 | XMS_ITS | Encounter Summary ---
Author Organization [employer] Address [address] [facility] [address] [place] [address] Care Team Providers Care Leather Goods Sales Representative Name Role Phone Angeles Daugherty MD Primary Care Pro vider Encounter Details Date Type Department Care Team (Late st Contact Info) Description 06/07/2023 Abstract [facility] MEDICINE [address] [place] [address] Irene Kim Social History Tobacco Use Types [...] as of this encounter Plan of Treatment Upcoming Encounters Date Type Department Care Team (Late st Contact Info) Description 08/21/2025 1:00 PM EST Nutrition [facility] DIABETES/NUTRITION [address] [place] [address] [place] [address] documented as of this encounter Visit Diagnoses Not on filedocumented in this encounter Care Teams Leather Goods Sales Representative Relationship Specialty Start Date End Date Angeles Daugherty MD [address] [place] [address] PCP - General Internal Medicine 05/10/23 documented as of this encounter
--- OUTSIDE RECORDS SUMMARY | 2025-06-10 13:13 | XMS_ITS | Encounter Summary ---
Author Organization [employer] Address [address] [place] [address] 7 [place] [address] Care Team Providers Care Healthcare Consulting Manager Name Role Phone Angeles Daugherty MD Primary Care Pro vider Reason for Visit * Reason Onset Date Comments Results 05/21/2025 Encounter Details Date Type Department Care Team ([facility] st Contact Info) Description 05/21/2025 Results Follow-Up [facility] MEDICINE [address] [place] [address] Angeles Daugherty MD [address] [place] [address] Hepatitis B Core Antibody, Total, Hepatitis B [...] EDT TC placed to the pt with [employer] gluing machine operator electronic #[id number] to inform of recent labs drawn. The [...] Info) Description 08/21/2025 1:[address] [facility] DIABETES/NUTRITION [address] [place] [address] [place] [address] documented as of this encounter Visit Diagnoses Diagnosis Encounter for immunization documented in this encounter Additional Health Concerns Assessment Noted Time PHQ-9 Depression Total Score: 0 03/24/20 25 11:50 AM EDT documented as of this encounter Care Teams Healthcare Consulting Manager Relationship Specialty Start Date End Date Angeles Daugherty MD [address] [place] [address] PCP - General Internal Medicine 05/10/23 documented as of this encounter
--- OUTSIDE RECORDS SUMMARY | 2025-06-10 13:13 | XMS_ITS | Clinical Summary ---
Author Organization [facility] Address [address] [place] [address] Care Team Providers Care Supervisor Dock Name Role Phone Angeles Daugherty Primary Care [...] e Free 05/10/2023 Pneumococcal conjugate PCV20 ,polysaccharide HMT349 conjugate, adjuvant, PF (Prevnar 20) 06/13/2023 Family [...] Info) Description 06/29/2025 10:40 AM EST Follow-Up [facility] Rhe[facility] [address] [place] [phone] Feather Trimmer: Audrey Lizama MD [address] [place] [address] 10/28/2025 11:30 AM EDT Office Visit [facility] [address] [place] [phone] Feather Trimmer: Lakshmi Corona PA [address] [place] [address] Obstetrics [place] [address] Health Maintenance Due Date Last Done Comments [...] Additional history exists Procedures * Due to [place] law, this organization might not be sharing negative HIV tests. Procedure Name Priority Date/Time Associated Diagnosis Comments HEMOGLOBIN A1C Routine 12/08/2024 11:23 AM EDT Hx of abnormal cervical Pap smear PAP Routine 07/18/2024 5:03 PM EST Hx of abnormal cervical Pap smear from Last 3 Months or Most Recently Relevant to Health Maintenance Results * Due to [place] law, this organization might not be sharing negative HIV tests. * (ABNORMAL) Hemoglobin A1c (12/08/2024 11:23 AM EDT) Hemoglobin A1C 6.1(H) <5.7 % 12/08/2024 7:53 PM EDT [employer] Comment: For someone without known diabetes, a [...] (MG/DL) 128 mg/dL 12/08/2024 7:53 PM EDT [employer] eAG (MMOL/L) 7.1 mmol/L 12/08/2024 7:53 PM EDT [employer] Blood Structure of peripheral vein / Unknown Venipuncture / Unknown 12/08/2024 11:23 AM EDT 12/08/2024 11:52 AM EDT Narrative [facility] - 12/08/2024 7:53 PM EDT [facility] Received Date: Malini Alicia MD LAB BLOOD ORDERABLES Final R esult [facility] [address], [place] [address], [employer] [facility] [address], [place] [address], [place] [phone] * Pap (07/18/2024 5:03 PM EST) Specimen Adequacy Satisfactory for evaluation [facility] 4 12:55 PM EST [facility] Pathologist Cytology Interpretation Low grade squamous intraepithelial lesion. [facility] 4 12:55 PM EST [facility] at 1255 EST Geographic Information System Surveyor Statement This Pap test was examined by the [facility], [employer], [place], [place]. This Pap test was examined in accordance with the [facility] Cytopathology Laboratory written policy, which incorporates all CLIA mandates. Current screening guidelines can be found in [place]: A Cancer Journal for Clinicians 2020;70:321-346. Current ASCCP management guidelines for abnormal Pap tests are published in the Journal Lower Genital Tract Disease Volume 2020;24:102-131. [facility] 4 12:55 PM EST [facility] Clinical History hx LSIL HPV+, [facility] 4 12:55 PM EST [facility] Resulting Agency Case was signed out at [facility], Department of Pathology, [facility] CLIA [id number] [facility] MANUAL 4 12:55 PM EST [facility] Report Header Gynecologic Cytology Report Case: [id number] Authorizing Provider: Malini Alicia MD Collected: 07/18/2024 1703 Ordering Location: [facility] Received: 07/18/2024 [facility] First Screen: Angeles Dean Pathologist: Dimas Cast MD Specimen: Screening ThinPrep Pap, Cervix/Endocervix 4 12:55 PM EST [facility] Brushing Cervix uteri structure / Unknown Non-Blood Collection / Unknown 07/18/2024 5:03 PM EST 07/18/2024 7:21 PM EST us Malini Alicia MD LAB PATHOLOGY/CYTOLOGY ORDER VIDAL Final Result [facility] [address] [place] [address], from Last 3 Months or Most Recently Relevant to Health Maintenance Insurance HSNO/FREE CARE Advance Directives Documents on File Type Date Recorded Patient Director Of Operations Support Expl anation Health Care Proxy 12/08/2024 7:45 AM 12-04 Health Care Proxy 12/05/2024 10:03 AM Care Teams Supervisor Dock Relationship Specialty Start Date End Date Angeles Daugherty PCP - General 06/13/23
[2025-06-10 13:42] LABS: Alanine Aminotransferase 134 U/L (0-31); Albumin Level 4.6 g/dL (3.5-5.0); Alkaline Phosphatase 83 U/L (39-117); Anion Gap 11 (12-20); Aspartate Amino Transferase 89 U/L (5-31); Blood Urea Nitrogen 13 mg/dL (9-16); Calcium 9.4 mg/dL (8.4-10.2); Carbon Dioxide 27 mmol/L (22-29); Chloride 106 mmol/L (96-108); Estimated Glomerular Filt Rate > 60; Potassium 3.8 mmol/L (3.3-5.1); Sodium 140 mmol/L (135-145); Total Protein 8.0 g/dL (6.5-8.0)
[2025-06-11 04:44] LABS: Follicle Stimulating Hormone 32.0 mIU/mL
[2025-06-16 12:09] LABS: Estradiol Ultra Sensitive 3 pg/mL
== END 2025-06-10 10:40 | disposition home or self-care (01) ==
LOC: HO.HHCL 10:39
PROVIDERS: PCP Student in an Organized Health Care Education/Training Program; Visit Provider Student in an Organized Health Care Education/Training Program
DX: R74.01 Elevation of levels of liver transaminase levels (principal); R23.2 Flushing
CPT/HCPCS: 36415; 80053; 82670; 83001; 83002